=== PATIENT | female | born 1960 | race African-American/Black ===

== ENCOUNTER → 2020-06-08 15:55 | Outpatient (BNVA) | payer MEDICARE, MEDICAID, SELFPAY | PROVIDERS: PCP Nurse Practitioner Adult Health; Visit Provider Student in an Organized Health Care Education/Training Program | DX: Z13.89 Encounter for screening for other disorder (principal) | CPT/HCPCS: Q3014 ==

== ENCOUNTER → 2021-02-02 14:34 | Outpatient (BNVA) | payer MEDICAID, SELFPAY | PROVIDERS: PCP Nurse Practitioner Adult Health; Visit Provider Nurse Practitioner Family | DX: M47.816 Spondylosis without myelopathy or radiculopathy, lumbar region (principal); M79.641 Pain in right hand; M79.642 Pain in left hand | CPT/HCPCS: 99212 ==

== ENCOUNTER 2021-04-10 13:10 | Outpatient (REF) | payer OTHER, SELFPAY ==
--- NOTE | ~2021-04-10 | XR_ITS ---
EXAMINATION: XR HAND, RIGHT XR HAND, LEFT CLINICAL INFORMATION: Pain of the hands COMPARISON: 08/17/2016 TECHNIQUE: Right hand, 3 views Left hand, 3 views FINDINGS: Right hand: Negligible osteophyte formation at first carpometacarpal joint, 2nd MCP joint and some of the DIP joints. The joint spaces are well-preserved in the hand and wrist. No periarticular osteoporosis. No erosions or periostitis. No focal soft tissue swelling. No abnormal soft tissue calcifications. Left hand: Negligible osteophyte formation at the first carpometacarpal joint. No significant degenerative changes in the hand or wrist. No periarticular osteoporosis, erosions or periostitis. No abnormal soft tissue calcification or focal soft tissue swelling. XR/XR hand RT min 3V IMPRESSION: Minimal osteoarthrosis of first carpometacarpal joints and of a few DIP joints of the hands. No significant arthritic changes. There is no evidence of an inflammatory arthropathy.
--- NOTE | ~2021-04-10 | XR_ITS ---
EXAMINATION: XR HAND, RIGHT XR HAND, LEFT CLINICAL INFORMATION: Pain of the hands COMPARISON: 08/17/2016 TECHNIQUE: Right hand, 3 views Left hand, 3 views FINDINGS: Right hand: Negligible osteophyte formation at first carpometacarpal joint, 2nd MCP joint and some of the DIP joints. The joint spaces are well-preserved in the hand and wrist. No periarticular osteoporosis. No erosions or periostitis. No focal soft tissue swelling. No abnormal soft tissue calcifications. Left hand: Negligible osteophyte formation at the first carpometacarpal joint. No significant degenerative changes in the hand or wrist. No periarticular osteoporosis, erosions or periostitis. No abnormal soft tissue calcification or focal soft tissue swelling. XR/XR hand LT min 3V IMPRESSION: Minimal osteoarthrosis of first carpometacarpal joints and of a few DIP joints of the hands. No significant arthritic changes. There is no evidence of an inflammatory arthropathy.
== END 2021-04-10 13:11 | disposition home or self-care (01) ==
LOC: HO.XRAY 13:10
PROVIDERS: PCP Nurse Practitioner Adult Health; Visit Provider Nurse Practitioner Family
DX: M79.641 Pain in right hand (principal); M79.642 Pain in left hand
CPT/HCPCS: 73130

== ENCOUNTER → 2021-10-20 12:17 | Outpatient (BNVA) | payer OTHER, SELFPAY | PROVIDERS: PCP Nurse Practitioner Adult Health; Visit Provider Nurse Practitioner Family | DX: M47.816 Spondylosis without myelopathy or radiculopathy, lumbar region (principal); M19.041 Primary osteoarthritis, right hand; M19.042 Primary osteoarthritis, left hand | CPT/HCPCS: 99212 ==

== ENCOUNTER → 2022-06-05 12:59 | Outpatient (BNVA) | payer OTHER, SELFPAY | PROVIDERS: PCP Nurse Practitioner Adult Health; Visit Provider Nurse Practitioner Family | DX: M19.041 Primary osteoarthritis, right hand (principal); M19.042 Primary osteoarthritis, left hand; M47.816 Spondylosis without myelopathy or radiculopathy, lumbar region; M79.644 Pain in right finger(s); M25.512 Pain in left shoulder | CPT/HCPCS: 99212 ==

== ENCOUNTER 2022-06-08 14:44 | Outpatient (REF) | payer OTHER, SELFPAY ==
--- NOTE | ~2022-06-08 | XR_ITS ---
EXAMINATION: XR HAND, RIGHT CLINICAL INFORMATION: Pain. COMPARISON: None TECHNIQUE: PA, lateral, and oblique views of the right hand. FINDINGS: There is mild loss of first carpometacarpal joint space with periarticular spurring. The MCP, PIP and DIP joint spaces are maintained normal. No visible fracture, dislocation or subluxation seen. XR/XR hand RT min 3V IMPRESSION: Mild degenerative changes first carpometacarpal joint space. Rest of the right hand appears unremarkable.
--- NOTE | ~2022-06-08 | XR_ITS ---
EXAMINATION: XR SHOULDER, LEFT CLINICAL INFORMATION: M25.512 - Pain in left shoulder COMPARISON: None TECHNIQUE: Left shoulder is imaged in 5 views. FINDINGS: No fracture or dislocation or destructive process. The glenohumeral joint is unremarkable. No narrowing or erosive change or chondrocalcinosis. The acromioclavicular alignment is normal. There is mild degenerative change acromioclavicular joint. No visible rotator cuff calcifications. XR/XR shoulder LT min 2V IMPRESSION: 1. Mild degenerative change acromioclavicular joint. 2. No visible rotator cuff calcifications.
[2022-06-08 15:47] LABS: MANUAL DIFF FLAG NO
[2022-06-08 16:37] LABS: Basophils Absolute Auto 0.1 X10*3/uL (0.0-0.2); Basophils Percent Auto 1.2 % (0-2); Eosinophils Absolute Auto 0.2 X10*3/uL (0.0-0.4); Eosinophils Percent Auto 3.7 % (0-4); Hematocrit 38.7 % (37.0-47.0); Hemoglobin 12.7 g/dl (12.0-16.0); Imm Gran Abs Auto 0.01 X10*3/uL (0.00-0.03); Imm Gran Pct Auto 0.2 % (0.0-0.4); Lymphocytes Absolute Auto 1.5 X10*3/uL (1.2-4.9); Lymphocytes Percent Auto 30.7 % (20-40); Mean Corpuscular HGB Conc 32.8 g/dl (31.0-35.0); Mean Corpuscular Hemoglobin 27.2 pg (27.0-33.0); Mean Corpuscular Volume 82.9 fL (80.0-98.0); Mean Platelet Volume 11.1 fL (9.4-12.3); Monocytes Absolute Auto 0.5 X10*3/uL (0.1-1.2); Monocytes Percent Auto 10.3 % (2-11); Neutrophils Absolute Auto 2.6 x10*3/uL (2.0-8.3); Neutrophils Percent Auto 53.9 % (45-73); Platelet Count 303 X10*3/uL (160-400); Red Blood Count 4.67 X10*6/uL (4.20-5.50); Red Cell Distribution Width 13.3 % (11.0-16.0); White Blood Count 4.9 X10*3/uL (4.8-10.8)
[2022-06-08 16:56] LABS: Alanine Aminotransferase 13 U/L (0-31); Albumin Level 4.5 g/dL (3.5-5.0); Alkaline Phosphatase 71 U/L (39-117); Anion Gap 13 (12-20); Aspartate Amino Transferase 16 U/L (5-31); Bilirubin Total 0.4 mg/dL (0.0-1.0); Blood Urea Nitrogen 13 mg/dL (9-16); C Reactive Protein 0.35 mg/dL (< or = 0.50); Calcium 9.9 mg/dL (8.4-10.2); Carbon Dioxide 27 mmol/L (22-29); Chloride 106 mmol/L (96-108); Estimated Glomerular Filt Rate > 60; Glucose Random 81 mg/dL (60-115); Potassium 4.4 mmol/L (3.3-5.1); Rheumatoid Factor < 13.0 IU/mL (<15.0); Sodium 142 mmol/L (135-145); Total Protein 7.6 g/dL (6.5-8.0)
[2022-06-08 17:14] LABS: Erythrocyte Sedimentation Rate 19 MM/HR (0-20)
== END 2022-06-08 14:45 | disposition home or self-care (01) ==
LOC: HO.XRAY 14:44
PROVIDERS: Visit Provider Nurse Practitioner Family
DX: M25.512 Pain in left shoulder (principal); M79.641 Pain in right hand
CPT/HCPCS: 36415; 73030; 73130; 80053; 85025; 85652; 86140; 86431

== ENCOUNTER 2022-07-10 14:24 | Outpatient (REF) | payer OTHER, SELFPAY | END 2022-07-10 14:25 | disposition home or self-care (01) | LOC: HO.MRI 14:24 | PROVIDERS: PCP Nurse Practitioner Adult Health; Visit Provider Nurse Practitioner Family | DX: Z13.89 Encounter for screening for other disorder (principal) ==

== ENCOUNTER 2022-07-27 13:09 | Outpatient (REF) | payer OTHER, SELFPAY ==
[2022-07-27 16:19] LABS: Amphetamine Screen Urine Not Detected (Not Detect); Barbiturates, Urine POSITIVE (Not Detect); Benzodiazepines Screen Urine Not Detected (Not Detect); Cannabinoid Screen Urine Not Detected (Not Detect); Cocaine Screen Urine Not Detected (Not Detect); Fentanyl, urine Not Detected (Not Detect); Opiate Screen Urine Not Detected (Not Detect); Phencyclidine Screen Urine Not Detected (Not Detect)
== END 2022-07-27 13:10 | disposition home or self-care (01) ==
LOC: HO.MRI 13:09
PROVIDERS: PCP Nurse Practitioner Adult Health; Visit Provider Nurse Practitioner Family
DX: M79.601 Pain in right arm (principal); Z79.899 Other long term (current) drug therapy
CPT/HCPCS: 80307

== ENCOUNTER 2023-05-07 10:32 | Outpatient (AMB) | payer OTHER, SELFPAY ==
[2023-05-07 10:34] VITALS: BP 130/82; PULSE 58; O2SAT 100; BMI 42.0
--- NOTE | 2023-05-07 10:34 | A.OFFVIS_ITS ---
Intake Vital Signs 05/07/23 10:34 Height 5 ft 1 in Weight 222 lb 3.615 oz BMI 42.0 BP 130/82 Blood Pressure Location Rt brachial Position Sitting Pulse 58 Pulse Source Pulse Oximeter Pulse Oximetry (%) 100 Oxygen Delivery Method Room Air Intake Visit Reasons: OA Intake Note: Pt last seen by Flaca 06/05/22, presents today for follow up and test results. Weaver Apprentice Required: No Accompanied by: Self / Same As Patient Allergies acetaminophen [Percocet] Allergy (Intermediate, Verified 05/07/23 10:40) vomiting oxycodone [Percocet] Allergy (Intermediate, Verified 05/07/23 10:40) Vomiting Medication List - Last Reconciled 05/07/23 by Kavon Pond MD aspirin 81 mg PO DAILY escitalopram oxalate 10 mg PO DAILY hydrocortisone 2.5% appl topical DAILY PRN lisinopril 20 mg PO DAILY metoprolol succinate ER 50 mg PO DAILY omeprazole 40 mg PO QAM rosuvastatin 40 mg PO DAILY [thumb spica splint, right As directed] tramadol 50 mg PO Q12H HPI HPI Comments History of Present Illness Details 62-year-old female with osteoarthritis returns for follow-up. She states that over the last few weeks she has been having shooting pain in her right hand. She feels the pain is generally worse in the daytime. She cannot think of any alleviating or triggering factors. 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 She takes tramadol Twice daily PFSH Medical History Osteoarthritis of hands, bilateral Hyperlipemia Myocardial infarct, old CAD (coronary artery disease) Lumbar spondylosis Surgical History Hx of section Hx of hysterectomy History of surgery Social History Alcohol intake: never Patient Tobacco Use Status: Former Tobacco user Years Smoked: quit 17 years Review of Systems Musc Reports back pain, Reports arthralgias, Reports stiffness and Reports tingling Neuro Reports tingling and Reports paresthesias Physical Exam Vital Signs: Last Vital Signs Pulse 58 05/07/23 10:34 BP 130/82 05/07/23 10:34 Pulse Ox 100 05/07/23 10:34 Oxygen Delivery Method Room Air 05/07/23 10:34 BMI result Body Mass Index 42.0 Const General: cooperative and healthy appearing Nutritional Appearance: obese morbidly obese Orientation/consciousness: patient oriented x3 Limitations: no limitations HEENT Head: Yes normocephalic and Yes atraumatic Resp Effort & Inspection: normal respiratory effort and able to speak in complete sentences Auscultation: clear to auscultation bilaterally Cardio Rate: regular rate Rhythm: regular rhythm Heart sounds: S1 normal heart sound present Neuro General: patient oriented x3 Extrem Other: Right 1st CMC tenderness Positive Tinel sign on the right with electric shock sensation radiating towards the thumb Negative Tinel sign on the left Normal range of motion of her neck with some pain with left lateral flexion Negative Spurling's test bilaterally Assessment & Plan Assessment & Plan (1) Osteoarthritis of hands, bilateral: Code(s): M19.041 - Primary osteoarthritis, right hand; M19.042 - Primary osteoarthritis, left hand Qualifiers: Osteoarthritis type: primary Qualified Code(s): M19.041 - Primary osteoarthritis, right hand; M19.042 - Primary osteoarthritis, left hand Plan: 62-year-old female with generalized osteoarthritis returns for follow-up. On tramadol Twice daily. Well tolerated. Continue with tramadol. (2) Lumbar spondylosis: Code(s): M47.816 - Spondylosis without myelopathy or radiculopathy, lumbar region (3) Paresthesia of hand, bilateral: Code(s): R20.2 - Paresthesia of skin Plan: Check bilateral upper extremity EMG Plan I spent 24 minutes reviewing patient's chart, evaluating patient, ordering diagnostic workup, counseling patient and documenting in the chart Orders: Orders NE electromyogram (EMG) Today G56.03 - Carpal tunnel syndrome, bilateral upper limbs Coding Level of Care Code Est Pt Level 4 (45660) Diagnoses Primary osteoarthritis of both hands M19.041; M19.042 Osteoarthritis type: primary Lumbar spondylosis M47.816 Paresthesia of hand, bilateral R20.2
== END 2023-05-07 11:03 | disposition home or self-care (01) ==
PROVIDERS: PCP Nurse Practitioner Adult Health; Visit Provider Student in an Organized Health Care Education/Training Program
DX: M19.041 Primary osteoarthritis, right hand (principal); M19.042 Primary osteoarthritis, left hand; M47.816 Spondylosis without myelopathy or radiculopathy, lumbar region; R20.2 Paresthesia of skin
CPT/HCPCS: 99214

== ENCOUNTER → 2023-05-07 10:32 | Outpatient (BNVA) | payer OTHER, SELFPAY | PROVIDERS: PCP Nurse Practitioner Adult Health; Visit Provider Student in an Organized Health Care Education/Training Program | DX: M19.041 Primary osteoarthritis, right hand (principal); M19.042 Primary osteoarthritis, left hand; R20.2 Paresthesia of skin; M47.816 Spondylosis without myelopathy or radiculopathy, lumbar region | CPT/HCPCS: 99212 ==

== ENCOUNTER 2023-06-20 12:53 | Outpatient (REF) | payer OTHER, SELFPAY ==
--- NOTE | 2023-06-20 12:56 | EMG_ITS ---
Chief complaint: Bilateral hand pain and numbness Reason for referral: Evaluate for Carpal Tunnel Syndrome Referred by: Dr. Pond Procedure done: Bilateral upper extremities NCS/EMG Precautions and/or limitations: None The limb temperature was monitored continuously and remained between 32-36 degrees C during the performance of the NCS. Nerve Conduction Studies Anti Sensory Summary Table ?Stim Site NR Onset (ms) Norm Onset (ms) Peak (ms) Norm Peak (ms) O-P Amp (?V) Norm O-P Amp Site1 Site2 Delta-0 (ms) Dist (cm) Azam (m/s) Norm Azam (m/s) Left Median Anti Sensory (2nd Digit) Wrist ? 1.9 3.0 <3.6 12.3 >10 Wrist 2nd Digit 1.9 14.0 74 Right Median Anti Sensory (2nd Digit) Wrist ? 2.6 3.3 <3.6 36.9 >10 Wrist 2nd Digit 2.6 14.0 54 Left Ulnar Anti Sensory (5th Digit) Wrist ? 0.8 3.2 <3.7 18.1 >15.0 Wrist 5th Digit 0.8 14.0 175 Right Ulnar Anti Sensory (5th Digit) Wrist ? 1.3 3.0 <3.7 18.1 >15.0 Wrist 5th Digit 1.3 14.0 108 Motor Summary Table ?Stim Site NR Onset (ms) Norm Onset (ms) O-P Amp (mV) Norm O-P Amp iAmp (mV) Amp (1st) (%) Site1 Site2 Delta-0 (ms) Dist (cm) Azam (m/s) Norm Azam (m/s) Left Median Motor (Abd Poll Brev) Wrist ? 3.1 <3.9 15.9 >4.5 17.4 100.0 Elbow Wrist 3.9 19.5 50 >45 Elbow ? 7.0 14.9 16.2 93.7 Right Median Motor (Abd Poll Brev) Wrist ? 3.4 <3.9 8.8 >4.5 10.5 100.0 Elbow Wrist 3.5 19.5 56 >45 Elbow ? 6.9 17.1 20.5 194.3 Left Ulnar Motor (Abd Dig Minimi) Wrist ? 2.6 <3.0 8.7 >5 11.5 100.0 B Elbow Wrist 2.9 18.5 64 >45 B Elbow ? 5.5 8.4 10.8 96.6 A Elbow B Elbow 1.5 10.0 67 >45 A Elbow ? 7.0 7.7 9.8 88.5 Right Ulnar Motor (Abd Dig Minimi) Wrist ? 2.7 <3.0 9.4 >5 11.6 100.0 B Elbow Wrist 2.8 18.0 64 >45 B Elbow ? 5.5 9.3 11.5 98.9 A Elbow B Elbow 1.5 10.0 67 >45 A Elbow ? 7.0 9.3 11.6 98.9 Comparison Summary Table ?Stim Site NR Peak (ms) Norm Peak (ms) P-T Amp (?V) Site1 Site2 Delta-P (ms) Norm Delta (ms) Left Median/Radial Dig I Comparison (Digit 1 - 10cm) Median ? 2.4 <2.9 23.9 Median Radial 0.1 Radial ? 2.5 <2.8 19.9 Right Median/Radial Dig I Comparison (Digit 1 - 10cm) Median ? 2.6 <2.9 78.0 Median Radial 0.5 Radial ? 2.1 <2.8 49.1 EMG ?Side Muscle Nerve Root Ins Act Fibs Psw Amp Dur Poly Recrt Int Pat Comment Right 1stDorInt Ulnar C8-T1 Nml Nml Nml Nml Nml 0 Nml Complete Right FlexCarRad Median C6-7 Nml Nml Nml Nml Nml 0 Nml Complete Right Biceps Musculocut C5-6 Nml Nml Nml Nml Nml 0 Nml Complete Right Triceps Radial C6-7-8 Nml Nml Nml Nml Nml 0 Nml Complete Right Deltoid Axillary C5-6 Nml Nml Nml Nml Nml 0 Nml Complete Left 1stDorInt Ulnar C8-T1 Nml Nml Nml Nml Nml 0 Nml Complete Left FlexCarRad Median C6-7 Nml Nml Nml Nml Nml 0 Nml Complete Left Biceps Musculocut C5-6 Nml Nml Nml Nml Nml 0 Nml Complete Left Triceps Radial C6-7-8 Nml Nml Nml Nml Nml 0 Nml Complete Left Deltoid Axillary C5-6 Nml Nml Nml Nml Nml 0 Nml Complete FINDINGS: All motor and sensory nerves tested showed normal latencies, amplitudes and conduction velocities. Concentric needle EMG was performed in selected muscles of the bilateral upper extremities. Study did not reveal signs of electric abnormalities as shown in the table below. IMPRESSION: 1. This is a normal study. 2. There is no electrodiagnostic evidence for median neuropathy, ulnar neuropathy, brachial plexopathy, or cervical radiculopathy. Thank you for your kind referral. Aidee Blankenship MD, VENKAT Board Certified, [place] Board [employer] and Rehabilitation (ABPMR) Board Certified, [place] Board of Electrodiagnostic Medicine (ABEM) CODIN 82118 x 2 MTDD
== END 2023-06-20 12:54 | disposition home or self-care (01) ==
LOC: HO.NEURO 12:53
PROVIDERS: PCP Nurse Practitioner Adult Health; Visit Provider Student in an Organized Health Care Education/Training Program
DX: G56.03 Carpal tunnel syndrome, bilateral upper limbs (principal)
CPT/HCPCS: 95886; 95911

== ENCOUNTER → 2023-06-20 12:56 | Outpatient (BNV) | payer OTHER, SELFPAY | PROVIDERS: PCP Nurse Practitioner Adult Health; Visit Provider Physical Medicine & Rehabilitation | DX: M79.641 Pain in right hand (principal); M79.642 Pain in left hand; R20.2 Paresthesia of skin | CPT/HCPCS: 95886; 95911 ==

== ENCOUNTER 2023-07-04 11:53 | Outpatient (AMB) | payer OTHER, SELFPAY ==
--- OUTSIDE RECORDS SUMMARY | 2023-07-04 11:55 | XMS_ITS | Continuity of Care Document ---
Author Name Unknown Organization [facility] Address [address] [place] [address]- Care Team Providers Care Maintenance Mechanic Technician Name Role Phone Thea JEAN, Waleska Primary Care Physician [id number] Date(s): 03/21/22 - 03/28/22 [facility] [address] [place], [place] [id number]- Attending Physician: Aidee Santoyo NP Referring Physician: Waleska Sidhu NP Allergies, Adverse Reactions, Alerts Substance Reaction Severity Status aspirin Upset stomach Active Percocet 5/325 made her sick Active Medications aspirin 81 mg oral delayed release tablet 81 mg, 1, tablet, By Mouth, Daily, # 60 tablet, Refills 6, Tot. Refills 6, Maintenance, 02/05/17 10:26:19, Route to Pharmacy Electronically, [id number], [facility]/pharmacy #[id number] Start Date: 02/05/17 Stop Date: 09/03/17 Status: Ordered Crestor 20 mg oral tablet 1 tablet = 20 mg, By Mouth, Daily, # 30 tablet, 11 Refills, Maintenance, Tablet Start Date: 01/10/11 Stop Date: 01/05/12 Status: Ordered lisinopril 40 mg oral tablet 1 tablet = 40 mg, By Mouth, Daily, # 90 tablet, 0 Refills, Maintenance, 10/31/21 13:09:00 EDT, Tablet, Partial fill upon patient request if the prescription is for a schedule II opioid drug. Start Date: 10/31/21 Status: Ordered metoprolol 50 mg oral tablet, extended release 50 mg, 1, tablet, By Mouth, Daily, # 90 tablet, Refills 3, Tot. Refills 3, Maintenance, 06/07/21 8:26:00 EST, Route to Pharmacy Electronically, [facility]/pharmacy #[id number], Partial fill upon patient request if the prescription is for a schedule II opioid drug.... Start Date: 06/07/21 Status: Ordered omeprazole 20 mg oral enteric coated capsule 1 capsule = 20 mg, By Mouth, 2 times a day, 0 Refills, Maintenance, 07/10/10 16:15:10 EST Start Date: 07/10/10 Status: Ordered Tramadol = 50 mg, 1 tab BID PRN, 0 Refills, 08/23/07 2:18:13 Start Date: 08/23/07 Status: Ordered Problem List Condition Confirmation Course Effective Dates Status Health St atus Informant Hyperlipidemia Confirmed Active Hypertension Confirmed Active Palpitations Confirmed Active Severe obesity Confirmed Active Vital Signs Most recent to oldest [Reference Range]: 1 Height 155 cm (03/21/22 2:56 PM) Weight 97.8 kg (03/21/22 2:56 PM) Oxygen Saturation [94-100 %] 98 % (03/21/22 2:56 PM) Pulse Rate [55-90 bpm] 54 bpm *L* (03/21/22 2:56 PM) Body Mass Index [18.5-24.99 kg/m2] 40.71 kg/m2 *>HHI* (03/21/22 2:56 PM) Blood Pressure [90-138/55-84 mm Hg] 148/ 73mm Hg *H* (03/21/22 2:56 PM) Blood pressure sites Arm, left (03/21/22 2:56 PM) Social History Social History Type Response Smoking Status Former smoker; Tobac co user in household: No entered on: 02/20/17 Sex Patient Care team information Personnel Name: Waleska Sidhu NP Address: Address: [address] [place] [address] [address] [facility], [place] [address]
--- OUTSIDE RECORDS SUMMARY | 2023-07-04 11:55 | XMS_ITS | Continuity of Care Document ---
Author Name Unknown Organization [facility] Address [address] [place] [address]- Care Team Providers Care Nursing Care Partner Name Role Phone Waleska Sidhu NP Primary Care Physician [phone] Encounter [facility] Date(s): 10/31/21 - 11/30/21 [facility] [address] [place] [address]- Attending Physician: Ruthie Pérez Admitting Physician: AdmRuthie gutiérrez Referring Physician: AdmtrRuthie Allergies, Adverse Reactions, Alerts Substance Reaction Severity Status aspirin Upset stomach Active Percocet 5/325 made her sick Active Medications aspirin 81 mg oral delayed release tablet 81 mg, 1, tablet, By Mouth, Daily, # 60 tablet, Refills 6, Tot. Refills 6, Maintenance, 02/05/17 10:26:19, Route to Pharmacy Electronically, [id number], [facility]/pharmacy #[id number] Start Date: 02/05/17 Stop Date: 09/03/17 [...] 06/07/21 8:26:00 EST, Route to Pharmacy Electronically, [facility]/pharmacy #[id number], Partial fill upon patient request if the prescription is for a schedule II opioid drug.... Start Date: 06/07/21 Status: Ordered Norvasc 5 mg oral tablet 5 mg, 1, tablet, By Mouth, Daily, # 30 tablet, Refills 0, Tot. Refills 0, Maintenance, 10/31/21 13:34:00 EDT, Route to Pharmacy Electronically, [facility]/pharmacy #[id number], Partial fill upon patient request if the prescription is for a schedule II opioid drug.... Start Date: 10/31/21 Status: Ordered omeprazole 20 mg oral enteric coated capsule 1 capsule = 20 mg, By Mouth, 2 times a day, 0 Refills, Maintenance, 07/10/10 16:15:10 EST Start Date: 07/10/10 Status: Ordered Tramadol = 50 mg, 1 tab BID PRN, 0 Refills, 08/23/07 2:18:13 Start Date: 08/23/07 Status: Ordered Problem List Condition Effective Dates Status Health Status Inform ant Hyperlipidemia(Confirmed) Active Hypertension(Confirmed) Active Obese class II(Confirmed) Active Palpitations(Confirmed) Active Social History Social History Type Response Smoking Status Former smoker; Tobac co user in household: No entered on: 02/20/17 Sex
--- OUTSIDE RECORDS SUMMARY | 2023-07-04 11:55 | XMS_ITS | Continuity of Care Document ---
Author Name Unknown Organization [facility] Address [address] [place] [address]- Care Team Providers Care Fourdrinier Tender Name Role Phone Waleska Sidhu NP Primary Care Phys[id number] - [facility]06[facility]20 [facility] [address] [place] [address]- [facility] Attending Physician: Mike Betts MD Admitting Physician: Mike Betts MD Allergies, Adverse Reactions, Alerts Substance Reaction Severity Status aspirin Upset stomach Active Percocet 5/325 made her sick Active Medications aspirin 81 mg oral delayed release tablet 81 mg, 1, tablet, By Mouth, Daily, # 60 tablet, Refills 6, Tot. Refills 6, Maintenance, 02/05/17 10:26:19, Route to Pharmacy Electronically, [id number], [facility]/pharmacy #[id number] Start Date: 02/05/17 Stop Date: 09/03/17 Status: Ordered Crestor 20 mg oral tablet 1 tablet = 20 mg, By Mouth, Daily, # 30 tablet, 11 Refills, Maintenance, Tablet Start Date: 01/10/11 Stop Date: 01/05/12 Status: Ordered lisinopril 10 mg oral tablet 10 mg, 1, tablet, By Mouth, Daily, # 90 tablet, Refills 3, Tot. Refills 3, Maintenance, 09/17/16 13:56:55, Route to Pharmacy Electronically, [id number], [facility], this is a dose increase per provider Start Date: 09/17/16 Stop Date: 09/12/17 Status: Ordered metoprolol 50 mg oral tablet, extended release 1 tablet = 50 mg, By Mouth, Daily, 0 Refills, Maintenance Start Date: 08/18/12 Status: Ordered omeprazole 20 mg oral enteric coated capsule 1 capsule = 20 mg, By Mouth, Daily, 0 Refills, Maintenance Start Date: 07/10/10 Status: Ordered Tramadol = 50 mg, 1 tab BID PRN, 0 Refills, 08/23/07 2:18:13 Start Date: 08/23/07 Status: Ordered Problem List Condition Effective Dates Status Health Status Inform ant Hyperlipidemia(Confirmed) Active Hypertension(Confirmed) Active Palpitations(Confirmed) Active Social History Social History Type Response Smoking Status Former smoker; Tobac co user in household: No entered on: 02/20/17 Sex
--- OUTSIDE RECORDS SUMMARY | 2023-07-04 11:55 | XMS_ITS | Continuity of Care Document ---
Author Name Unknown Organization [facility] Address [address] [place] [address]- Care Team Providers Care Wallcovering Texturer Name Role Phone Thea JEAN, Waleska Primary Care Physician En[facility] Date(s): 12/07/19 - 01/06/20 [facility] [address] [place] [address]- [facility] Allergies, Adverse Reactions, Alerts Substance Reaction Severity Status aspirin Upset stomach Active Percocet 5/325 made her sick Active Medications aspirin 81 mg oral delayed release tablet 81 mg, 1, tablet, By Mouth, Daily, # 60 tablet, Refills 6, Tot. Refills 6, Maintenance, 02/05/17 10:26:19, Route to Pharmacy Electronically, [id number], [facility]/pharmacy #[id number] Start Date: 02/05/17 Stop Date: [...] Maintenance, 09/17/16 13:56:55, Route to Pharmacy Electronically, [id number], [facility], this is a dose [...]
--- OUTSIDE RECORDS SUMMARY | 2023-07-04 11:55 | XMS_ITS | Continuity of Care Document ---
Author Name Unknown Organization [facility] Address [address] [place] [address]- Care Team Providers Care Slitter Scorer Name Role Phone Thea JEAN, Waleska Primary Care Phys[id number] 11/19/19 - 01/06/20 [facility] [address] [place] [address]- [facility] Attending Physician: Mike Betts MD Admitting Physician: Mike Betts MD Referring Physician: Waleska Sidhu NP Allergies, Adverse Reactions, Alerts Substance Reaction Severity Status aspirin Upset stomach Active Percocet 5/325 made her sick Active Medications aspirin 81 mg oral delayed release tablet 81 mg, 1, tablet, By Mouth, Daily, # 60 tablet, Refills 6, Tot. Refills 6, Maintenance, 02/05/17 10:26:19, Route to Pharmacy Electronically, [id number], [facility]/pharmacy #[id number] Start Date: 02/05/17 Stop Date: 09/03/17 [...] Maintenance, 09/17/16 13:56:55, Route to Pharmacy Electronically, [id number], [facility], this is a dose increase [...] ant Hyperlipidemia(Confirmed) Active Hypertension(Confirmed) Active Palpitations(Confirmed) Active Vital Signs Most recent to oldest [Reference Range]: 1 Height 155.00 cm (12/03/19 4:06 PM) Social History Social History Type Response Smoking Status Former smoker; Tobac co user in household: No entered on: 02/20/17 Sex
--- OUTSIDE RECORDS SUMMARY | 2023-07-04 11:55 | XMS_ITS | Continuity of Care Document ---
Author Name Unknown Organization [facility] Address [address] [place] [address]- Care Team Providers Care Tunnel Heading Inspector Name Role Phone Waleska Sidhu NP Primary Care Physician Encounter [facility] Date(s): 01/11/20 - 02/10/20 [facility] [address] [place] [address]- [facility] Attending Physician: Ruthie Pérez Admitting Physician: Ruthie Pérez Referring Physician: Ruthie Pérez Allergies, Adverse Reactions, Alerts Substance Reaction Severity Status aspirin Upset stomach Active Percocet 5/325 made her sick Active Medications aspirin 81 mg oral delayed release tablet 81 mg, 1, tablet, By Mouth, Daily, # 60 tablet, Refills 6, Tot. Refills 6, Maintenance, 02/05/17 10:26:19, Route to Pharmacy Electronically, [id number], [facility]/pharmacy #[id number] Start Date: 02/05/17 Stop Date: [...] Maintenance, 09/17/16 13:56:55, Route to Pharmacy Electronically, [id number], [facility], this is a dose [...]
--- OUTSIDE RECORDS SUMMARY | 2023-07-04 11:55 | XMS_ITS | Continuity of Care Document ---
Author Name Unknown Organization [facility] Address [address] [place] [address]- Care Team Providers Care Instrument Lens Inspector Name Role Phone Thea JEAN, Waleska Primary Care Physician [phone] Encounter [facility] Date(s): 02/26/22 - 03/28/22 [facility] [address] [place] [address]- [place] Allergies, Adverse Reactions, Alerts Substance Reaction Severity Status aspirin Upset stomach Active Percocet 5/325 made her sick Active Medications aspirin 81 mg oral delayed release tablet 81 mg, 1, tablet, By Mouth, Daily, # 60 tablet, Refills 6, Tot. Refills 6, Maintenance, 02/05/17 10:26:19, Route to Pharmacy Electronically, [id number], [facility]/pharmacy #[id number] Start Date: 02/05/17 Stop Date: 09/03/17 Status: [...] 06/07/21 8:26:00 EST, Route to Pharmacy Electronically, [facility]/pharmacy #[id number], Partial fill upon patient request if the [...] Palpitations Confirmed Active Severe obesity Confirmed Active Social History Social History Type Response Smoking Status Former smoker; Tobac co user in household: No entered on: 02/20/17 Sex Patient Care team information Personnel Name: Waleska Sidhu NP Address: Address: [address] [place] [address] [place] [address], [place] [address]
--- OUTSIDE RECORDS SUMMARY | 2023-07-04 11:55 | XMS_ITS | Continuity of Care Document ---
Author Name Unknown Organization [facility] Address [address] [place] [id number]- Care Team Providers Care Adobe Maker Name Role Phone Thea JEAN, Waleska Primary Care Physician [phone] [place] [facility] [place] - 11/23/21 [facility] [address] [place] [address]- [place] Allergies, Adverse Reactions, Alerts Substance Reaction Severity Status aspirin Upset stomach Active Percocet 5/325 made her sick Active Medications aspirin 81 mg oral delayed release tablet 81 mg, 1, tablet, By Mouth, Daily, # 60 tablet, Refills 6, Tot. Refills 6, Maintenance, 02/05/17 10:26:19, Route to Pharmacy Electronically, [id number], [facility]/pharmacy #[id number] Start Date: 02/05/17 Stop Date: 09/03/17 Status: [...] 06/07/21 8:26:00 EST, Route to Pharmacy Electronically, [facility]/pharmacy #[id number], Partial fill upon patient request if the prescription is for a schedule II opioid drug.... Start Date: 06/07/21 Status: Ordered Norvasc 5 mg oral tablet 5 mg, 1, tablet, By Mouth, Daily, # 30 tablet, Refills 0, Tot. Refills 0, Maintenance, 10/31/21 13:34:00 EDT, Route to Pharmacy Electronically, [facility]/pharmacy #[id number], Partial fill upon patient request if [...]
--- OUTSIDE RECORDS SUMMARY | 2023-07-04 11:55 | XMS_ITS | Continuity of Care Document ---
Author Name Unknown Organization [facility] Address [address] [place] [address]- Care Team Providers Care Utility Tender Carding Name Role Phone Waleska Sidhu NP Primary Care Physician Encounter [facility] [place] Date(s): 03/21/22 - 04/20/22 [facility] [address] [place] [id number]- Attending Physician: Ruthie Pérez Admitting Physician: AdmRuthie gutiérrez Referring Physician: AdmtrRuthie Allergies, Adverse Reactions, Alerts Substance Reaction Severity Status aspirin Upset stomach Active Percocet 5/325 made her sick Active Medications aspirin 81 mg oral delayed release tablet 81 mg, 1, tablet, By Mouth, Daily, # 60 tablet, Refills 6, Tot. Refills 6, Maintenance, 02/05/17 10:26:19, Route to Pharmacy Electronically, [id number], [facility]/pharmacy #[id number] Start Date: 02/05/17 Stop Date: 09/03/17 [...] 06/07/21 8:26:00 EST, Route to Pharmacy Electronically, [facility]/pharmacy #[id number], Partial fill upon patient request if the [...] on: 02/20/17 Sex Patient Care team information Care Team Personnel Name: Waleska Sidhu NP Position: [facility] Office Staff Member Role: PCP Address: Address: [address] [place] [address] [address] [place] [address]- Care Team Related Persons Name: DAVID CONTRERAS Address: [address] [place] [address]
--- OUTSIDE RECORDS SUMMARY | 2023-07-04 11:55 | XMS_ITS | Patient Health Record ---
Author Name Unknown Organization [facility] Address [address] [place] [address] Care Team Providers Care Planning Lead Name Role Phone CINDY WHITE Primary Care Provider [phone] CINDY WHITE Unavailable [phone] IRINA GAVIN Unavailable [phone] TEREZA FERRARI Unavailable [phone] Allergies Allergen (clinical drug ingredient) Drug/Non Drug Allergy documented on EMR Reaction Allergy Type Onset Date Status aspirin Aspirin TABS (uncoded) vomiting Allergy Active acetaminophen / oxycodone Percocet TABS (uncoded) Unknown Allergy Active Results Component Value Reference Range Notes CBC WITH AUTO DIFF Reviewed date:07/24/2022 12:22:04 PM Interpretation: Performing Lab: Notes/Report: WBC 5.5 4.8-10.8 x10-3/uL RBC 4.5 3.8-4.8 x10-6/uL HEMOGLOBIN 12.5 11.5-16.0 g/dL HEMATOCRIT 40.0 35-47 % MCV 88.1 79-98 fL MCH 27.5 27-32 pg MCHC 31.3 32-37 g/dL RDW 13.3 11-15 % PLT COUNT 274 130-400 x10-3/uL MEAN PLATELET VOLUME 11.3 7-11 fL NRBC % AUTO 0.0 <1 % NEUT % 55.9 LYMPH % 29.5 MONO % 10.1 EOS % 3.8 BASO % 0.5 IMMATURE GRANULOCYTES % 0.2 NRBC # AUTO 0.00 <0.1 x10-3/uL ABSOLUTE NEUT 3.08 1.5-7.0 x10-3/uL LYMPH # 1.63 1-5.0 x10-3/uL MONO # 0.56 0.2-1.0 x10-3/uL EOS # 0.21 0-0.5 x10-3/uL BASO # 0.03 0-0.2 x10-3/uL IMMATURE GRANULOCYTES # 0.01 0-0.03 x10-3/uL CBC WITH AUTO DIFF Reviewed date:01/17/2023 06:07:22 PM Interpretation: Performing Lab: Notes/Report: WBC 4.5 4.8-10.8 x10-3/uL RBC 4.5 3.8-4.8 x10-6/uL HEMOGLOBIN 12.2 11.5-16.0 g/dL HEMATOCRIT 37.9 35-47 % MCV 83.8 79-98 fL MCH 27.0 27-32 pg MCHC 32.2 32-37 g/dL RDW 13.4 11-15 % PLT COUNT 330 130-400 x10-3/uL MEAN PLATELET VOLUME 10.1 7-11 fL NRBC % AUTO 0.0 <1 % NEUT % 50.3 LYMPH % 33.9 MONO % 12.5 EOS % 2.0 BASO % 1.1 IMMATURE GRANULOCYTES % 0.2 NRBC # AUTO 0.00 <0.1 x10-3/uL ABSOLUTE NEUT 2.25 1.5-7.0 x10-3/uL LYMPH # 1.52 1-5.0 x10-3/uL MONO # 0.56 0.2-1.0 x10-3/uL EOS # 0.09 0-0.5 x10-3/uL BASO # 0.05 0-0.2 x10-3/uL IMMATURE GRANULOCYTES # 0.01 0-0.03 x10-3/uL COMPREHENSIVE METABOLIC PANE L Reviewed date:07/24/2022 12:21:30 PM Interpretation: Performing Lab: Notes/Report: GLUCOSE 78 70-100 mg/dL Reference range applicable to fasting specimens only BUN 14 5-25 mg/dL CREAT 0.78 0.5-1.1 mg/dL GLOMERULAR FILTRATION RATE 87 >60 This eGFR result was calculated using the CKD-EPI 2020 Creatinine Equation SODIUM 141 135-145 mEq/L POTASSIUM 3.9 3.5-5.5 mmol/L CHLORIDE 108 96-110 mmol/L CO2 28 21-32 mmol/L ANION GAP 5 3-11 CALCIUM 9.5 8.5-10.5 mg/dL TOTAL PROTEIN 7.6 6.0-8.0 G/dL ALBUMIN 3.7 3.2-5.0 G/dL BILI,TOTAL 0.3 0.0-1.4 mg/dL SGOT 14 10-42 U/L SGPT 19 10-60 U/L ALK PHOS 79 42-121 U/L GLYCOHEMOGLOBIN PROFILE Reviewed date:07/24/2022 12:22:38 PM Interpretation: Performing Lab: Notes/Report: GLYCATED HEMOGLOBIN A1C 6.2 <6.5 % ESTIMATED AVERAGE GLUCOSE 131 LIPID PROFILE Reviewed date:07/24/2022 12:21:50 PM Interpretation: Performing Lab: Notes/Report: CHOLESTEROL 174 0-200 mg/dL TRIGLYCERIDES 88 0-150 mg/dL HDL CHOLESTEROL 61 >40 mg/dL LDL CALCULATED 96 0-100 mg/dL TC-HDLC RATIO 2.9 0-4.4 mg/dL MICROALB/CREAT RATIO, RANDOM Reviewed date:07/24/2022 12:22:22 PM Interpretation: Performing Lab: Notes/Report: MICROALBUMIN, RANDOM 32.7 0.0-29.0 mg/L MICROALB/CRE RATIO RANDOM 13.7 0.0-30.0 mg/G CREATININE, RANDOM URINE 237 CT Brain WO Reviewed date:08/07/2022 02:43:17 PM Interpretation: Performing Lab: Notes/Report: Original Ordering Provider: CINDY WHITE NP [facility] US Duplex Venous Study RT Reviewed date:09/03/2022 01:26:58 PM Interpretation: Performing Lab: Notes/Report: CC PRIMARY CARE Reviewed date:01/17/2023 12:06:41 PM Interpretation: Performing Lab: Notes/Report: URIC ACID Reviewed date:08/24/2022 01:15:58 PM Interpretation: Performing Lab: Notes/Report: URIC ACID 3.3 3.1-7.8 mg/dL CBC WITH AUTO DIFF Reviewed date:08/21/2022 07:28:11 PM Interpretation: Performing Lab: Notes/Report: WBC 5.7 4.8-10.8 x10-3/uL RBC 4.7 3.8-4.8 x10-6/uL HEMOGLOBIN 12.8 11.5-16.0 g/dL HEMATOCRIT 39.9 35-47 % MCV 85.4 79-98 fL MCH 27.4 27-32 pg MCHC 32.1 32-37 g/dL RDW 13.7 11-15 % PLT COUNT 342 130-400 x10-3/uL MEAN PLATELET VOLUME 11.0 7-11 fL NRBC % AUTO 0.0 <1 % NEUT % 58.1 LYMPH % 26.3 MONO % 11.2 EOS % 3.3 BASO % 0.9 IMMATURE GRANULOCYTES % 0.2 NRBC # AUTO 0.00 <0.1 x10-3/uL ABSOLUTE NEUT 3.31 1.5-7.0 x10-3/uL LYMPH # 1.50 1-5.0 x10-3/uL MONO # 0.64 0.2-1.0 x10-3/uL EOS # 0.19 0-0.5 x10-3/uL BASO # 0.05 0-0.2 x10-3/uL IMMATURE GRANULOCYTES # 0.01 0-0.03 x10-3/uL Electrocardiogram (EKG) Reviewed date:08/07/2022 11:30:24 AM Interpretation: Performing Lab: Notes/Report: Colonoscopy Reviewed date:08/03/2022 04:52:57 PM Interpretation:Dr Nevarez,Rpt 10yrs Performing Lab: Notes/Report: Dr Nevarez,Rpt 10yrs CR Foot RT Min 3 Views Reviewed date:08/24/2022 01:13:23 PM Interpretation:Negative Performing Lab: Notes/Report: Original Ordering Provider: CINDY WHITE NP [facility] Reason For Referral Reason snorer, poor sleep, am fatigue, obese, CAD. please perform sleep study Diagnosis 1 Sleep disturbance (G 47.9) Diagnosis 2 Morbid obesity due t o excess calories (E66.01) Diagnosis 3 Coronary artery dise ase involving chitina heart without angina pectoris, unspecified vessel or lesion type (I25.10) Referral Organization [facility] Referring Provider First Name CINDY Referring Provider Last Name CINDY Referring Provider Speciality Family Pra ctice Referred Provider Specialty Sleep Medici ne General Notes Dionne Teague 8:24:06 AM > Sleep,Medicine Services Referral Priority Routine Reason 4 week hx of hamstri ng pain and pain in ankle and foot. began after bending down and over something. not associated with back pain. has not improved with heat, home stretches. eval and treat. Diagnosis 1 Right leg pain (M79. 604) Referral Organization [facility] Referring Provider First Name CINDY Referring Provider Last Name POOJAROSELYN Referring Provider Speciality Family Pra ctice Referred Provider Specialty Physical The rapist General Notes Dionne Teague 05/2023 1:49:30 PM > [facility],([place]) Referral Priority Routine Medications Medication SIG (Take, Route, Frequency, Duration) Notes Start Date End Date Status Zolpidem Tartrate 10 MG 1 tablet at bedtime as needed Orally Once a day for 30 days PRN 09/25/2021 Not-Taking One Touch Delica Lancets - as directed In Vitro to test BS QD or as directed by . DX: E11.9 for 90 days 03/02/2020 Active Nitroglycerin 0.4 MG 1 tablet Sublingual if needed for chest pain. for 30 Not-Taking Metoprolol Succinate ER 50 MG 1 tablet Orally Once a day for 90 Active DEPO-Medrol 40 MG/ML Injection for 0 as directed 04/13/2014 Not-Taking Lisinopril 20 MG TAKE 1 TABLET BY MOUTH EVERY DAY for 90 days Active Polyethylene Glycol 3350 Oral for 0 Empty entire bottle into 64 oz Gatorade 2 or if diabetic in 64 oz Crystal Light. Starting at 4pm drink 8oz every 20mins drink entire 64oz. 03/07/2015 Not-Taking Hydrocortisone 2.5 % 1 application Externally Once a day for 30 days PRN Active Aspirin Low Dose 81 MG TAKE 1 TABLET BY MOUTH EVERY DAY for 90 Active traMADol HCl 50 MG one tablet prn Oral q8h for 30 TAKE 1 TABLET BY MOUTH 4 TIMES A DAY NEEDED FOR PAIN 02/03/2014 Active OneTouch Verio w/Device as directed In Vitro To Test BS QD or as directed by DX: E11.9 for 365 days 03/02/2020 Active Cyclobenzaprine HCl 10 MG TAKE 1 TABLET BY MOUTH EVERY DAY FOR 30 DAYS for 30 Not-Taking OneTouch Verio - as directed In Vitro to test BS QD or as directed by DX: E11.9 for 90 days 03/02/2020 Active metFORMIN HCl ER 500 MG 1 tablet with evening meal Orally Once a day for 90 days Active Escitalopram Oxalate 10 MG TAKE 1 TABLET BY MOUTH EVERY DAY for 90 Not-Taking Prednisone [address] Dave Not- Taking Crestor 40 MG 1 tablet Orally Once a day for 90 days Active Keisha Microlet Lancets Does Not Apply for 30 TEST WITH BID 12/06/2007 Not-Taking FreeStyle Test In Vitro for 0 USE DIRECTED THREE TIMES DAILY 08/08/2010 Not-Taking Lansoprazole 30 MG 1 capsule before a meal Orally Once a day for 90 days Active Omeprazole 40 MG TAKE 1 CAPSULE BY MOUTH EVERY DAY 30 MINUTES BEFORE MORNING MEAL FOR 30 DAYS Orally Once a day for 90 days Not-Taking Fluticasone Propionate 50 MCG/ACT Nasal Daily for 0 USE 1 TO 2 SPRAYS IN EACH NOSTRIL ONCE DAILY. 05/25/2014 Not-Taking Social History Tobacco Use: Social History Observation Description Date Details (start date - stop date) Never Smoker NA - NA Tobacco Use/Smoking Question Answer Notes Are you a nonsmoker Additional Findings: Tobacco Non-User Current no n-smoker Alcohol Screen (Audit-C) Question Answer Notes Did you have a drink containing alcohol in the p ast year? No Points 0 Interpretation Negative Tobacco use other than smoking: Question Answer Notes Are you an other tobacco user? No Problems Problem Type SNOMED Code ICD Code Onset Dates Problem Status W/U Status Risk Notes Problem 679221292 Chronic tension-type headache, not intractable (G44.229) Active confirmed Problem Gastro-esophageal reflux disease without esophagitis (797701051) Gastro-esophagea l reflux disease without esophagitis (K21.9) Active confirmed Problem 156061701 Fibromyalgia (M79.7) Active confirmed Dr Dave Problem Mixed anxiety and depressive disorder (983649662) Depression with anxiety (F41.8) Active confirmed Problem 81293928 Sleep disturbance (G47.9) Active confirmed light out examiner stressors in life and now sister on assisted life support and nephew murdered. will give zolpidem. discussed intermittent use, not nightly. needs to keep in secure place and never to use with etoh. Problem 099962764 Morbid obesity due to excess calories (E66.01) Active confirmed Problem 457317077 Chronic constipation (K59.09) Active confirmed Problem 271991786 Chronic depression (F32.9) Active confirmed has significant stressors within family. Now also helping to care for mom. PHQ-9 score 8. will cont meds. Problem 38139763 Essential hypertension (I10) Active confirmed discussed getting bp checked at pharmacy or by borrowing a family member's monitor for home checks. Today , bp elevated. increase lsinopril to 20 mg reeval in 4 weeks. discussed stroke prevention. No med change. Problem 702902518 Type 2 diabetes mellitus without complication, without long-term current use of insulin (E11.9) Active confirmed not testing blood sugars at home- afraid to stick self..Is trying to avoid sweets. . using metformin- not able to increase dose due to diarrhea. eye exam due- urged to call.Has had covid vaccines cont sumit and statin Lab today Problem Annual health maintenance examination (18924536) Annual physical exam (Z00.00) Active confirmed Problem 19517449 Diverticulosis of intestine without bleeding, unspecified intestinal tract location (K57.90) Active confirmed Dr Griffin, colonoscopy Problem 625170915 Primary osteoarthritis involving multiple joints (M15.0) Active confirmed Problem 397324315 Pure hypercholesterol emia (E78.00) Active confirmed lipid panel this week- order form given. cont statin. Encouraged lower fat eating. Problem 87633069 Coronary artery disease involving chitina heart without angina pectoris, unspecified vessel or lesion type (I25.10) Active confirmed anterior wall ND Problem 781571454 Microscopic hematuria (R31.29) Active confirmed neg cytology, US and cystocopy 2014, Dr Law Problem 059921535 Ischemic heart disease (I25.9) 1904 Active confirmed hx ND 2006, bare metal stent LAD DR Tolbert [facility] Seen yearly. Denies sx. BP and lipids at goal. Problem Hypercholesterolemi a (24965625) Hypercholesterol emia (E78.00) Active confirmed Vital Signs Heart Rate 67 /min 04/08/2023 Temperature 98.9 degrees Fahrenheit 04/08/2023 Oximetry 97 % 04/08/2023 Blood pressure diastolic 82 mm Hg 04/08/2023 Height 61.0235 in 04/08/2023 Blood pressure systolic 128 mm Hg 04/08/2023 Weight 224 lbs 04/08/2023 BMI 42.29 kg/m2 04/08/2023 Encounters Encounter Location Date Provider Diagnosis [facility] [address] [place] [address] 07/24/2022 CINDY WHITE Ischemic heart disease I25.9 ; Type 2 diabetes mellitus without complication, without long-term current use of insulin E11.9 ; Chronic tension-type headache, not intractable G44.229 ; Sleep disturbance G47.9 and Depression with anxiety F41.8 [facility] [address] [place] [address] 08/07/2022 CINDY WHITE Palpitations R00.2 ; Chest pain R07.9 and Chronic tension-type headache, not intractable G44.229 [facility] [address] [place] [address] 08/21/2022 CINDY WHITE Right leg pain M79.604 ; Traumatic ecchymosis of right foot, initial encounter S90.31XA ; Effusion of metatarsophalangeal (MTP) joint of great toe M25.476 and Gastro-esophageal reflux disease without esophagitis K21.9 [facility] [address] [place] [address] 08/28/2022 CINDY WHITE Right leg pain M79.604 ; Effusion of metatarsophalangeal (MTP) joint of great toe M25.476 and Gastro-esophageal reflux disease without esophagitis K21.9 [facility] [address] [place] [address] 04/08/2023 CINDY WHITE Gastro-esophageal reflux disease without esophagitis K21.9 ; Essential hypertension I10 ; Coronary artery disease involving chitina heart without angina pectoris, unspecified vessel or lesion type I25.10 ; Type 2 diabetes mellitus without complication, without long-term current use of insulin E11.9 ; Hypercholesterolemia E78.00 and Eczema, unspecified type L30.9 [facility] [address] [place] [address] 07/27/2022 CINDY WHITE [facility] [address] [place] [address] 08/01/2022 CINDY WHITE Eczema, unspecified type L30.9 [facility] [address] [place] [address] 08/07/2022 CINDY WHITE [facility] [address] [place] [address] 08/28/2022 CINDY WHITE [facility] [address] [place] [address] 09/10/2022 CINDY WHITE Right leg pain M79.604 [facility] [address] [place] [address] 09/11/2022 CINDY WHITE Gastro-esophageal reflux disease without esophagitis K21.9 [facility] [address] [place] [address] 12/12/2022 CINDY WHITE Eczema, unspecified type L30.9 Assessments Encounter Date Diagnosis (ICD Code) Assessment Notes Treatment Notes Treatment Clinical Notes 07/24/2022 Type 2 diabetes lele itus without complication, without long-term current use of insulin (ICD-10 - E11.9) not testing blood sugars at home- afraid to stick self.. AiC at goal cont metformin , statin and sumit. urged eye exam. 07/24/2022 Ischemic heart disea se (ICD-10 - I25.9) hx ND 2006, bare metal stent LAD DR Didi Merlos Seen yearly. Denies sx. BP and lipids at goal. had sx last week that could indicate angina. disucssed with pt. can't get to this office until next week due to other commitments. OV 7 days with ekg. instruceted to go to Ed if she has return of palp and or SOB. cont cardiac meds at current dose. 08/01/2022 Eczema, unspecified type (ICD-10 - L30.9) begin hydrocorstison e. stop using etoh swabs. refer to derm. 08/21/2022 Right leg pain (ICD- 10 - M79.604) given hx pain is most likely muscular skeletal but need to r/o DVT. image cont asa 81 mg daily 08/21/2022 Traumatic ecchymosis of right foot, initial encounter (ICD-10 - S90.31XA) has ecchymosis and underly ing tenderness. inverting foot when walking due to pain. will image to r/o occult fracture. Apply warm heat packs/heating pad 08/28/2022 Right leg pain (ICD- 10 - M79.604) improving awaiting imaging appt to r/o DVT. image cont asa 81 mg daily 09/10/2022 Right leg pain (ICD- 10 - M79.604) 09/11/2022 Gastro-esophageal re flux disease without esophagitis (ICD-10 - K21.9) 12/12/2022 Eczema, unspecified type (ICD-10 - L30.9) 04/08/2023 Gastro-esophageal re flux disease without esophagitis (ICD-10 - K21.9) omeprazole has not been effective. has had GI eval. sx constant and not associated with activity, SOB to indicate cardiac origin. will try Prevacid, discussed use of GoodRx if needed 04/08/2023 Essential hypertensi on (ICD-10 - I10) discussed getting bp checked at pharmacy or by borrowing a family member's monitor for home checks. Today , bp elevated. increase lsinopril to 20 mg reeval in 4 weeks. discussed stroke prevention. No med change. bp near goal with current med. out of meds for about 3 mo. lightheadedness improved when back on betablocker for past few days. resume lisinopril. stressed need to find new pcp and make appoi ntment promptly for followup. 08/07/2022 Palpitations (ICD-10 - R00.2) EKG NSR, discussed limiting caffeine as sx occur after consuming. GERD sx seem to be controlled with PPI; has had negative EGD, has GI follow up. 08/07/2022 Chest pain (ICD-10 - R07.9) no further chest pressure. has resumed metoprolol EKG today NSR rate 54. urged to go to ED if has sx again. 08/07/2022 Chronic tension-type headache, not intractable (ICD-10 - G44.229) remote eval by neuro and not migraines. Fioricet very effective for sx. discussed not made for daily use. Will rx #10 per month max. cont life style modifications, heat, massage, posture. 04/08/2023 Coronary artery dise ase involving chitina heart without angina pectoris, unspecified vessel or lesion type (ICD-10 - I25.10) anterior wall ND follows with cardiology. on betablocker and statin. denies CP, decrese exercise tolerance. no med changes due for labs today 08/28/2022 Effusion of metatarsophalangeal (MTP) joint of great toe (ICD-10 - M25.476) resolved use comfortable nonheeled footwear 08/21/2022 Effusion of metatarsophalangeal (MTP) joint of great toe (ICD-10 - M25.476) may be associated with ecchymosis and tenderness of mid foot. will check for gout as MTP is acutely tender. 07/24/2022 Chronic tension-type headache, not intractable (ICD-10 - G44.229) peristent headaches. instructed to use heat to neck and shoulders. will give short course of fiorcet. discussed habituation and avoidance of assisted use. has not had imaging so will request CT. reeval one week or after CT 08/21/2022 Gastro-esophageal re flux disease without esophagitis (ICD-10 - K21.9) has had nausea since change of parasitology teacher for PPI. will request refill with different parasitology teacher of med 08/28/2022 Gastro-esophageal re flux disease without esophagitis (ICD-10 - K21.9) 07/24/2022 Sleep disturbance (I CD-10 - G47.9) light out examiner stressors in life and now sister on assisted life support and nephew murdered. does not sleep well trazedone in past gave her hangover. had sleep study over 10 years ago and does not recall results. not found in transfered records. as heavy snorer and overweight, as well has cardiac disease, will request sleep study. 04/08/2023 Type 2 diabetes lele itus without complication, without long-term current use of insulin (ICD-10 - E11.9) not testing blood sugars at home- afraid to stick self..Is trying to avoid sweets. . using metformin- not able to increase dose due to diarrhea. eye exam due- urged to call.Has had covid vaccines cont sumit and statin Lab today has been out of meds for at least 3 mo. hyperglycemia may be contributing to today's sx of light headedness. refill metformin, SUMIT and statin. Labs today and adjust meds when results known. 04/08/2023 Hypercholesterolemia (ICD-10 - E78.00) 07/24/2022 Depression with anxi ety (ICD-10 - F41.8) not taking SSRI Feels she is doing okay without it. does not want to start escitalopram as she is having headaches. 04/08/2023 Eczema, unspecified type (ICD-10 - L30.9) Plan Of Treatment Pending Test Test Name Order Date Microalb/Creat Ratio, Rand Ur 7 MAMMOGRAM, SCREENING 08/24/2016 MAMMOGRAM, SCREENING 09/25/2021 CBC WITH AUTO DIFF 05/08/2022 COMPREHENSIVE METABOLIC PANEL 05/08/2022 COMPREHENSIVE METABOLIC PANEL 08/24/2016 GLYCOHEMOGLOBIN PROFILE 05/08/2022 LIPID PROFILE 05/08/2022 LIPID PROFILE 08/24/2016 URINALYSIS 08/24/2016 MICROALB/CREAT RATIO, RANDOM 05/08/2022 HgA1C 08/24/2016 xr right foot 08/21/2022 CT Brain WO 07/24/2022 Anand Screening Digital 09/18/2018 TSH 12/06/2017 Microalb/Creat Ratio, Rand Ur 8 Lipid Panel 12/06/2017 Comp. Metabolic Panel (14) 12/06/2017 HgA1C 12/06/2017 Microalb/Creat Ratio, Rand Ur 0 Lipid Panel 04/18/2020 Comp. Metabolic Panel (14) 02/26/2020 HgA1C 02/26/2020 Microalb/Creat Ratio, Rand Ur 0 Comp. Metabolic Panel (14) 04/18/2020 MAGNESIUM 02/26/2020 HgA1C 04/18/2020 Microalb/Creat Ratio, Rand Ur 2 HgA1C 02/16/2022 COMPREHENSIVE METABOLIC PANEL 02/16/2022 LIPID PROFILE 02/16/2022 MICROALB/CREAT RATIO, RANDOM 02/16/2022 Future Test Test Name Order Date Lipid Panel 12/31/2016 MICROALB/CREAT RATIO, RANDOM 12/31/2016 HgA1C 12/31/2016 Vitamin B12 01/15/2020 COMPREHENSIVE METABOLIC PANEL 10/18/2020 LIPID PROFILE 10/18/2020 GLYCOHEMOGLOBIN PROFILE 09/25/2021 VITAMIN B12 04/08/2023 COMPREHENSIVE METABOLIC PANEL 04/08/2023 GLYCOHEMOGLOBIN PROFILE 04/08/2023 LIPID PROFILE 04/08/2023 TSH 04/08/2023 MICROALB/CREAT RATIO, RANDOM 04/08/2023 Insurance Providers Payer Name Payer Address Payer Phone Subscriber Number Group Number Insured Name Patient Relationship to Insured Coverage Start Date Coverage End Date [facility] Plan, In [address] [address] [place] [address] [phone] [id number] Ariana Ahn Self - patient is the insured [employer] [place] [address] [place] [address] [phone] [id number] Ariana Ahn Self - patient is the insured Medical (General) History Medical History History ICD Code , Abdominal pain, LLQ (left lower quadrant) , Abnormal CT scan , Acute maxillary sinusitis , Anal Fissure , Anal Pain , Arteriosclerotic coronary artery disease , External Hemorrhoids , History of acute sinusitis , History of dizziness , History of headache , History of urinary tract infection , Joint Pain In The Right Hip , Leg Weakness , Lethargy , Lower Back Pain Muscle Spasm , Lump In / On The Skin , Pain, joint, shoulder , Post-nasal drip , Pruritus Ani , Snoring , Tendinitis of left shoulder , Upper Respiratory Infection , Urinary Frequency Increased , Urinary Tract Infection , Visit for preventive health examination Surgical History Surgery Date(Month/Year) Hysterectomy 1999 Section hemorroidectomy and retocele repair Dr Germain hilton 2014 coronary stent 2008 Hospitalization History Reason Date(Month/Year)
--- OUTSIDE RECORDS SUMMARY | 2023-07-04 11:55 | XMS_ITS | Continuity of Care Document ---
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 Refills 6, Maintenance, 02/05/17 10:26:19, Route to Pharmacy Electronically, [id number], [facility]/pharmacy #[id number] Start Date: 02/05/17 Stop [...] 06/07/21 8:26:00 EST, Route to Pharmacy Electronically, [facility]/pharmacy #[id number], Partial fill upon patient request if the prescription is for a schedule II opioid drug.... Start Date: 06/07/21 Status: Ordered Metoprolol Succinate ER 50 mg oral tablet, extended release 1 tablet, By Mouth, Daily, # 90 tablet, 3 Refills, Maintenance, 06/23/22 15:21:00 EST, [id number], 155, cm, 03/21/22 14:56:00 EDT, Height Start Date: 06/23/22 Status: Ordered omeprazole 20 mg oral enteric [...] in household: No entered on: 02/20/17 Sex Note * Event Display: Non BH Lab Results Authored Date: * Event Display: Non BH Lab Results Authored Date: * Event Display: Holter Report Authored Date: * Glenny Luong: PERFORM Event Display: Cardiovascular Results Scanned Authored Date: Patient Care team information Care Team Personnel Name: Waleska Sidhu NP Position: [facility] Office Staff Member Role: PCP Address: Address: [address] [place] [address] [address] [place] [address]- Name: Misty Rhodes Position: [facility] Outreach Member Role: Lifetime Consulting Physician Care Team Related Persons Name: DAVID CONTRERAS Address: [address] [place] [address]
[2023-07-04 11:56] VITALS: BP 136/84; PULSE 72; RESP 15; TEMP 36.2; O2SAT 98; BMI 41.8
--- NOTE | 2023-07-04 11:56 | MHC.OFFVIS ---
Intake Vital Signs 07/04/23 11:56 Height 5 ft 1 in Weight 221 lb 1.978 oz BMI 41.8 BP 136/84 Blood Pressure Location Rt brachial Position Sitting Respiration 15 Pulse 72 Pulse Source Pulse Oximeter Temp 97.2 F Temp Source Tympanic Pulse Oximetry (%) 98 Oxygen Delivery Method Room Air Intake Visit Reasons: OA Allergies acetaminophen [Percocet] Allergy (Intermediate, Verified 07/04/23 12:00) vomiting oxycodone [Percocet] Allergy (Intermediate, Verified 07/04/23 12:00) Vomiting Medication List - Last Reconciled 07/04/23 by Kavon Pond MD aspirin 81 mg PO DAILY hydrocortisone 2.5% appl topical DAILY PRN lisinopril 20 mg PO DAILY metoprolol succinate ER 50 mg PO DAILY omeprazole 40 mg PO QAM rosuvastatin 40 mg PO DAILY [thumb spica splint, right As directed] tramadol 50 mg PO Q12H HPI HPI Comments History of Present Illness Details 62-year-old female with osteoarthritis returns for follow-up. She continues to have sharp shooting pain going down her left thumb when lifting heavy objects or with any overuse. 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 She has similar symptoms on her right thumb. She wears the thumb splint whenever she goes shopping. She has been having pain on the outer aspect of her right hip, she states that her bursitis pain still bothers her, it hurts when she lies on her right side. [facility] Medical History Osteoarthritis of hands, bilateral Hyperlipemia Myocardial infarct, old CAD (coronary artery disease) Lumbar spondylosis Surgical History Hx of section Hx of hysterectomy History of surgery Social History Alcohol intake: never Patient Tobacco Use Status: Former Tobacco user Years Smoked: quit 17 years Review of Systems Musc Reports arthralgias, Reports stiffness and Reports tingling Neuro Reports tingling and Reports paresthesias Physical Exam Vital Signs: Last Vital Signs Temp 97.2 F 07/04/23 11:56 Pulse 72 07/04/23 11:56 Resp 15 07/04/23 11:56 BP 136/84 07/04/23 11:56 Pulse Ox 98 07/04/23 11:56 Oxygen Delivery Method Room Air 07/04/23 11:56 BMI result Body Mass Index 41.8 Const General: cooperative and healthy appearing Nutritional Appearance: obese morbidly obese Orientation/consciousness: patient oriented x3 Limitations: no limitations HEENT Head: Yes normocephalic and Yes atraumatic Resp Effort & Inspection: normal respiratory effort and able to speak in complete sentences Neuro General: patient oriented x3 Extrem Other: Right 1st CMC tenderness Positive Tinel sign on the right with electric shock sensation radiating towards the right middle finger Negative Tinel sign on the left Left 1st CMC tenderness Assessment & Plan Assessment & Plan (1) Osteoarthritis of hands, bilateral: Code(s): M19.041 - Primary osteoarthritis, right hand; M19.042 - Primary osteoarthritis, left hand Qualifiers: Osteoarthritis type: primary Qualified Code(s): M19.041 - Primary osteoarthritis, right hand; M19.042 - Primary osteoarthritis, left hand Plan: 62-year-old female with osteoarthritis returns for follow-up. Patient continues to have intermittent pain at the base of her left thumb with activity. Will prescribe a thumb split for the left hand. Advised patient to use it as much as possible. Continue to use the right thumb spica splint. She takes Tylenol 2 tabs twice daily and tramadol 1 tab twice daily. Stated that Voltaren gel was not helpful in the past. Follow-up in 6 months (2) Paresthesia of hand, bilateral: Code(s): R20.2 - Paresthesia of skin Plan: Bilateral upper extremity EMG/NCV was unremarkable. (3) Trochanteric bursitis, right hip: Code(s): M70.61 - Trochanteric bursitis, right hip Plan: I gave patient a printout of home exercises Plan I spent 24 minutes reviewing patient's chart, evaluating patient, placing orders, counseling patient and documenting in the chart Medications: New [thumb spica splint Left] wear as much as possible throughout the day 1 ea 0RF M18.12 - Unilateral primary osteoarthritis of first carpometacarpal joint, left hand Coding Level of Care Code Est Pt Level 4 (64107) Diagnoses Primary osteoarthritis of both hands M19.041; M19.042 Osteoarthritis type: primary Paresthesia of hand, bilateral R20.2 Trochanteric bursitis, right hip M70.61
== END 2023-07-04 12:17 | disposition home or self-care (01) ==
LOC: HO.RHE 11:53
PROVIDERS: PCP Nurse Practitioner Adult Health; Visit Provider Student in an Organized Health Care Education/Training Program
DX: M19.041 Primary osteoarthritis, right hand (principal); M19.042 Primary osteoarthritis, left hand; R20.2 Paresthesia of skin; M70.61 Trochanteric bursitis, right hip
CPT/HCPCS: 99214

== ENCOUNTER → 2023-07-04 11:53 | Outpatient (BNVA) | payer OTHER, SELFPAY | PROVIDERS: PCP Nurse Practitioner Adult Health; Visit Provider Student in an Organized Health Care Education/Training Program | DX: M19.041 Primary osteoarthritis, right hand (principal); M19.042 Primary osteoarthritis, left hand; M70.61 Trochanteric bursitis, right hip; R20.2 Paresthesia of skin | CPT/HCPCS: 99212 ==

== ENCOUNTER 2024-01-07 11:06 | Outpatient (AMB) | payer OTHER, SELFPAY ==
[2024-01-07 11:14] VITALS: BP 132/76; PULSE 65; O2SAT 100; BMI 43.8
--- NOTE | 2024-01-07 11:14 | A.OFFVIS_ITS ---
Vital Signs 01/07/24 11:14 Height 5 ft 1 in Weight 231 lb 14.821 oz BMI 43.8 BP 132/76 Blood Pressure Location Lt brachial Position Sitting Pulse 65 Pulse Source Pulse Oximeter Pulse Oximetry (%) 100 Oxygen Delivery Method Room Air Intake Visit Reasons: OA Intake Note: Patient last seen 07/04/2023, is following up on osteoarthritis. Patient states she has a lot pain in shoulder blade, down arm, into elbow, and left fingers are sore, and feeling prickling. Allergies acetaminophen [Percocet] Allergy (Intermediate, Verified 01/07/24 11:17) vomiting oxycodone [Percocet] Allergy (Intermediate, Verified 01/07/24 11:17) Vomiting Medication List - Last Reconciled 01/07/24 by Kavon Pond MD aspirin 81 mg PO DAILY hydrocortisone 2.5% appl topical DAILY PRN lansoprazole 30 mg PO DAILY lisinopril 20 mg PO DAILY methocarbamol 500 mg PO Q8H PRN metoprolol succinate ER 50 mg PO DAILY omeprazole 40 mg PO QAM rosuvastatin 40 mg PO DAILY [thumb spica splint Left wear as much as possible throughout the day] [thumb spica splint, right As directed] tramadol 50 mg PO Q12H HPI Comments Details: 63-year-old female with osteoarthritis returns for follow-up. She continues to have intermittent pain and stiffness of her fingers, today she is complaining of stiffness and cracking of her left 3rd PIP. She has been having pain in her neck radiating to her right shoulder and arm, she was evaluated by pain m anagement who suggested an epidural injection, patient did not want to proceed with it. She has done PT for her neck early this year and was taught multiple exercises. She takes tramadol 50 mg daily and takes another tablet as needed. She also takes Tylenol PFSH Medical History Osteoarthritis of hands, bilateral Hyperlipemia Myocardial infarct, old CAD (coronary artery disease) Lumbar spondylosis Surgical History Hx of section Hx of hysterectomy History of surgery Social History Alcohol intake: never Patient Tobacco Use Status: Former Tobacco user Years Smoked: quit 17 years Review of Systems ENT Reports neck pain Musc Reports arthralgias, Reports neck pain, Reports radiating pain into limb and Reports stiffness Neuro Reports paresthesias Physical Exam Vital Signs: Last Vital Signs Pulse 65 01/07/24 11:14 BP 132/76 01/07/24 11:14 Pulse Ox 100 01/07/24 11:14 Oxygen Delivery Method Room Air 01/07/24 11:14 BMI result Body Mass Index 43.8 Const General: cooperative and healthy appearing Nutritional Appearance: obese morbidly obese Orientation/consciousness: patient oriented x3 Limitations: no limitations HEENT Head: Yes normocephalic and Yes atraumatic Resp Effort & Inspection: normal respiratory effort and able to speak in complete sentences Neuro General: patient oriented x3 Extrem Other: Right 1st CMC tenderness Left 3rd PIP tenderness without swelling Negative Spurling's test bilaterally Assessment & Plan Assessment & Plan (1) Osteoarthritis of hands, bilateral: Code(s): M19.041 - Primary osteoarthritis, right hand; M19.042 - Primary osteoarthritis, left hand Category: Medical Qualifiers: Osteoarthritis type: primary Qualified Code(s): M19.041 - Primary osteoarthritis, right hand; M19.042 - Primary osteoarthritis, left hand Plan: 63-year-old female with osteoarthritis returns for follow-up. She continues to have some intermittent pain and stiffness of her fingers, she takes tramadol mg daily and another 50 mg as needed. Also takes Tylenol, symptoms fairly well controlled. Patient reassured Will refill her tramadol but will refill 45 tablets per month rather than 60 tabs (2) Cervicalgia: Code(s): M54.2 - Cervicalgia Category: Medical Plan: She was evaluated by pain management and epidural injection was suggested but patient refused. Her symptoms are minimal, she has done PT earlier this year for her neck Plan I spent 17 minutes reviewing patient's chart, evaluating patient, placing orders, counseling patient and documenting in the chart Coding Level of Care Code Est Pt Level 3 (50089) Diagnoses Primary osteoarthritis of both hands M19.041; M19.042 Osteoarthritis type: primary Cervicalgia M54.2
== END 2024-01-07 11:36 | disposition home or self-care (01) ==
PROVIDERS: PCP Nurse Practitioner Adult Health; Visit Provider Student in an Organized Health Care Education/Training Program
DX: M19.041 Primary osteoarthritis, right hand (principal); M19.042 Primary osteoarthritis, left hand; M54.2 Cervicalgia
CPT/HCPCS: 99213

== ENCOUNTER → 2024-01-07 11:06 | Outpatient (BNVA) | payer OTHER, SELFPAY | PROVIDERS: PCP Nurse Practitioner Adult Health; Visit Provider Student in an Organized Health Care Education/Training Program | DX: M19.042 Primary osteoarthritis, left hand (principal); M19.041 Primary osteoarthritis, right hand; M54.2 Cervicalgia | CPT/HCPCS: 99212 ==

== ENCOUNTER 2025-01-15 13:36 | Outpatient (AMB) | payer OTHER, SELFPAY ==
[2025-01-15 13:43] VITALS: BP 128/80; PULSE 63; O2SAT 98; BMI 41.5
--- NOTE | 2025-01-15 13:43 | A.OFFVIS_ITS ---
Vital Signs 01/15/25 13:43 Height 5 ft 1 in Weight 219 lb 12.814 oz BMI 41.5 BP 128/80 Blood Pressure Location Lt brachial Position Sitting Pulse 63 Pulse Source Pulse Oximeter Pulse Oximetry (%) 98 Oxygen Delivery Method Room Air Intake Visit Reasons: OA Intake Note: Patient presents for osteoarthritis follow up and lab review. Allergies acetaminophen (Percocet) Allergy (Intermediate, Verified 01/15/25 13:48) vomiting oxycodone (Percocet) Allergy (Intermediate, Verified 01/15/25 13:48) Vomiting Medication List - Last Reconciled 01/15/25 by Екатерина Claire MD aspirin 81 mg PO DAILY hydrocortisone 2.5% appl topical DAILY PRN lansoprazole 30 mg PO DAILY lisinopril 20 mg PO DAILY methocarbamol 500 mg PO Q8H PRN metoprolol succinate ER 50 mg PO DAILY omeprazole 40 mg PO QAM rosuvastatin 40 mg PO DAILY [thumb spica splint Left wear as much as possible throughout the day] [thumb spica splint, right As directed] tramadol 75 mg (1.5 x 50 mg) PO DAILY 30 days HPI Comments Details: Patient is a 64 y.o. female with HTN, HLD c/b CAD and stenting in 2009, GERD, and polyarticular OA here today for follow up Interval History: Patient last seen 01/07/[address] Pond - On Tramadol 50mg daily - Follow up for polyarticular OA - No changes made to her medications Today, - On Tramadol 50mg daily - C/o swelling to her right 4th digit for the past 3 weeks, associated with numbness and tingling Rheumatologic History: OA Current Rheumatology Medication(s): Tramadol 75mg daily PFSH Medical History Osteoarthritis of hands, bilateral Hyperlipemia Myocardial infarct, old CAD (coronary artery disease) Lumbar spondylosis Surgical History Hx of section Hx of hysterectomy History of surgery Social History Alcohol intake: never Patient Tobacco Use Status: Former Tobacco user Years Smoked: quit 17 years Review of Systems Const Details: Review of Systems Constitutional: Denies fever, chills, weight loss ENT: Denies vision changes, eye pain or eye redness, dental caries, dry mouth GI: Denies nausea, vomiting, diarrhea, abdominal pain, change in BM Pulm: Denies SOB, VARMA, hemoptysis, wheezing Cards: Denies chest pain, palpitations Skin: Denies Raynaud's, rash, nail changes, photosensitivity, INTELLIGENT SYSTEMS ENGINEER: Denies headaches, weakness, paresthesias, recurrent falls MSK: as per HPI All other systems reviewed and are unremarkable except noted above Physical Exam Exam Exam: Vital signs reviewed Physical Examination CONSTITUITIONAL Patient alert and cooperative. Well appearing and in no apparent painful distress MSK Hands * Right Hand: Not able to make a fist. 4th digit with fusiform swelling with TTP of the 4th MCP, PIP and DIP. TTP 1st CMC with positive grind test * Left Hand: Able to make a fist. No swelling or tenderness to palpation of these joints. No deformities noted. Wrists * Right Wrist: Full ROM. 70 degrees of wrist flexion, 80 degrees of wrist extension. No swelling or TTP * Left Wrist: Full ROM. 70 degrees of wrist flexion, 80 degrees of wrist extension. No swelling or TTP Elbows * Right Elbow: Full ROM. No swelling or TTP. TTP of the lateral epicondyle * Left Elbow: Full ROM. No swelling or TTP. No TTP of the medial and lateral epicondyles Shoulders * Right shoulder: Full ROM. No swelling noted. No TTP of the subacromial bursa or posterior shoulder * Left shoulder: Full ROM. No swelling noted. No TTP of the subacromial bursa or posterior shoulder * TTP of the bilateral AC joints Knees * Right knee: Full ROM. No swelling noted. TTP of the knee joint line, Crepitations felt * Left knee: Full ROM. No swelling noted. TTP of the knee joint line, Crepitations felt Ankles * Right ankle: Good ankle dorsiflexion and plantar flexion. No swelling. No TTP of the ankle joint * Left ankle: Good ankle dorsiflexion and plantar flexion. No swelling. No TTP of the ankle joint Feet * Right foot: Negative squeeze test * Left foot: Negative squeeze test * 1st MTP TTP bilaterally Tender points? * No tenderness to palpation of the bilateral trapezius, supraspinatus, anterior costochondral junctions, bilateral suboccipital muscle insertions SKIN No rashes No nail changes Vital Signs: Last Vital Signs Pulse 63 01/15/25 13:43 BP 128/80 01/15/25 13:43 Pulse Ox 98 01/15/25 13:43 Oxygen Delivery Method Room Air 01/15/25 13:43 BMI result Body Mass Index 41.5 Results Reviewed Results Reviewed: 10/02/24 WBC 5.1 Hb 12.8 Plt 35 BUN 13 Cr 0.73 eGFR 93 ESR 42 H CRP 0.40 XR Right Hand 06/2022 FINDINGS: There is mild loss of first carpometacarpal joint space with periarticular spurring. The MCP, PIP and DIP joint spaces are maintained normal. No visible fracture, dislocation or subluxation seen. IMPRESSION: Mild degenerative changes first carpometacarpal joint space. Rest of the right hand appears unremarkable. XR Bilateral Hands 04/2021 FINDINGS: Right hand: Negligible osteophyte formation at first carpometacarpal joint, 2nd MCP joint and some of the DIP joints. The joint spaces are well-preserved in the hand and wrist. No periarticular osteoporosis. No erosions or periostitis. No focal soft tissue swelling. No abnormal soft tissue calcifications. Left hand: Negligible osteophyte formation at the first carpometacarpal joint. No significant degenerative changes in the hand or wrist. No periarticular osteoporosis, erosions or periostitis. No abnormal soft tissue calcification or focal soft tissue swelling. IMPRESSION: Minimal osteoarthrosis of first carpometacarpal joints and of a few DIP joints of the hands. No significant arthritic changes. There is no evidence of an inflammatory arthropathy. Assessment & Plan Assessment & Plan (1) Polyarticular osteoarthritis: Code(s): M15.9 - Polyosteoarthritis, unspecified Plan: #Polyarticular OA Patient is a 64 y.o. female with polyarticular OA here today for follow up Today she has dactylitis involving her right ring finger. Differentials: infection, psoriatic arthritis, neuropathy, OA Will evaluate further Plan - MR Right Hand - Right Hand EMG - Labs: CBC, CMP, ESR, CRP, RF, CCP, HLA B27 - RTC 6 months or sooner if significant lab results Plan I spent 30 minutes reviewing the record and labs, taking a history, examining the patient, discussing the treatment plan, ordering diagnostic work up and documenting in the medical record Orders: Orders NE nerve conduction velocity Today G56.20 - Lesion of ulnar nerve, unspecified upper limb Complete Blood Count Auto Diff Today M19.041 - Primary osteoarthritis, right robert nd, M19.042 - Primary osteoarthritis, left hand Comprehensive Met. Panel Today M19.041 - Primary osteoarthritis, right hand, M19.042 - Primary osteoarthritis, left hand Erythrocyte Sedimentation Rate Today M19.041 - Primary osteoarthritis, right hand, M19.042 - Primary osteoarthritis, left hand Cyclic Citrullinated Peptide Today M19.041 - Primary osteoarthritis, right hand, M19.042 - Primary osteoarthritis, left hand Rheumatoid Factor Today M19.041 - Primary osteoarthritis, right hand, M19.042 - Primary osteoarthritis, left hand MR hand RT wo con Today M79.89 - Other specified soft tissue disorders NE electromyogram (EMG) Today G56.20 - Lesion of ulnar nerve, unspecified upper limb C Reactive Protein Today M19.041 - Primary osteoarthritis, right hand, M19.042 - Primary osteoarthritis, left hand HLA B27 Today M19.041 - Primary osteoarthritis, right hand, M19.042 - Primary osteoarthritis, left hand Medications: Changed From tramadol 75 mg (1.5 x 50 mg) PO DAILY PRN 45 tabs 4RF pain M19.041 - Primary osteoarthritis, right hand, M19.042 - Primary osteoarthritis, left hand To tramadol 75 mg (1.5 x 50 mg) PO DAILY 45 tabs 5RF pain 30 days M19.041 - Primary osteoarthritis, right hand, M19.042 - Primary osteoarthritis, left hand Coding Level of Care Code Est Pt Level 4 (59669) Diagnoses Polyarticular osteoarthritis M15.9
== END 2025-01-15 14:34 | disposition home or self-care (01) ==
LOC: HO.RHES 13:36
PROVIDERS: PCP Nurse Practitioner Adult Health; Visit Provider Student in an Organized Health Care Education/Training Program
DX: M15.9 Polyosteoarthritis, unspecified (principal)
CPT/HCPCS: 99214

== ENCOUNTER → 2025-01-15 13:36 | Outpatient (BNVA) | payer OTHER, SELFPAY | PROVIDERS: PCP Nurse Practitioner Adult Health; Visit Provider Student in an Organized Health Care Education/Training Program | DX: M13.89 Other specified arthritis, multiple sites (principal) | CPT/HCPCS: 99212 ==

== ENCOUNTER 2025-01-19 11:58 | Outpatient (REF) | payer OTHER, SELFPAY ==
--- OUTSIDE RECORDS SUMMARY | 2025-01-19 13:25 | XMS_ITS | Clinical Summary ---
Author Organization [facility] [address] [place] [address] [place] [phone] Phone Care Team Providers Care Sole Molding Machine Operator Name Role Phone Sree Espinal MD Primary Care Provider [phone] Allergies Active Allergy Reactions Criticality Noted Date Comments Oxycodone-Acetaminophen 03/23/2009 Medications lisinopriL (PRINIVIL,ZESTR IL) 20 mg tablet Take 1 tablet (20 mg total) by mouth 1 (one) time each day. 9 Active rosuvastatin (CRESTOR) 20 mg tablet Take 1 tablet (20 mg total) by mouth 1 (one) time each day. 2 Active metoprolol succinate (TOPROL-XL) 50 mg 24 hr tablet Take 1 tablet (50 mg total) by mouth 1 (one) time each day. 9 Active aspirin (ASPIR-81 ORAL) Take 1 tablet by mouth 1 (one) time each day. Active traMADoL (ULTRAM) 50 mg tablet Take 1 tablet (50 mg total) by mouth every 12 (twelve) hours if needed. Active blood-glucose meter kit Check sugars once daily E11.9 Active FREESTYLE LANCETS MISC Check sugars once daily Active glucose blood test strip Check sugars once daily E11.9 Active metFORMIN XR (GLUCOPHAGE-XR) 500 mg 24 hr tablet TAKE 1 TABLET WITH BREAKFAST EVERY DAY 90 tablet 1 5 Active lansoprazole (PREVACID) [address] capsule Take 1 capsule (30 mg total) by mouth 1 (one) time each day before breakfast. Take by mouth. - Oral 90 capsule 1 5 Active hydrocortisone 2.5 % cream Apply topically 2 (two) times a day if needed for irritation or rash. 30 g 2 5 08/27/19 Active Active Problems Problem Noted Date Diagnosed Date Chronic tension-type headache 06/20/2022 Mixed anxiety and depressive disorder 06/20/2022 Primary osteoarthritis 06/20/2022 Type 2 diabetes mellitus wit hout complication ([facility] V24, [facility] V28) 06/20/2022 Atherosclerotic heart diseas e of [place] coronary artery without angina pectoris 02/13/2016 Fibromyalgia 02/13/2016 Gastro-esophageal reflux disease without esophag itis 02/13/2016 Degenerative joint disease (DJD) of lumbar spine 01/20/2016 Diverticulosis of colon 08/12/2015 Essential hypertension 08/12/2015 Hyperlipidemia 08/12/2015 Internal hemorrhoids with complication 5 Back muscle spasm 10/27/2014 Irritable bowel syndrome 10/27/2014 Arthropathy of ankle and foot 02/03/2014 Past myocardial infarction 01/13/2013 Ischemic heart disease 12/01/1904 Encounters Date Type Department Care Team Description 10/28/2024 Telephone Internal Medicine - [address] [phone] Sree Espinal MD Joseph: Letter(jury duty) from Last 3 Months Social History Tobacco Use Types Packs/Day Years Used Date Smoking Tobacco: Former Smokeless Tobacco: Never Tobacco Cessation:Counseling Given: Not Answered Comments Unknown Sex and Gender Information Value Date Recorded Sex Assigned at Not on file Legal Sex Female 9:40 AM EST Gender Identity Not on file Sexual Orientation Not on file Obstetrics History Last Filed Vital Signs Vital Sign Reading Time Taken Comments Blood Pressure 138/86 08/26/2024 11:36 AM EDT Pulse 72 08/26/2024 11:36 AM EDT Temperature 36.6 C (97.8 F) 07/23/2024 11:17 AM EST Respiratory Rate 15 04/21/2024 2:08 PM EST Oxygen Saturation 99% 08/26/2024 11:36 AM EDT Inhaled Oxygen Concentration - - Weight 97.3 kg (214 lb 6.4 oz) 07/23/2024 11:17 AM EST Height 154.9 cm (5' 1 ) 07/23/2024 11:17 AM EST Body Mass Index 40.51 07/23/2024 11:17 AM EST Plan of Treatment Upcoming Encounters Date Type Department Care Team (Late st Contact Info) Description 01/26/2025 11:00 AM EDT Office Visit Internal Medicine - [place] [address] [facility] [address] [place] [phone] Sree Espinal MD [address] [facility] [address] [place] [address] Health Maintenance Due Date Last Done Comments Diabetes: Annual Foot Exam 1972 Diabetes: Annual Retina Eye Exam 1972 DTaP,Tdap,and Td Vaccines (1 - Tdap) 1981 Pneumococcal Vaccine: 50+ Years (1 of 2 - PCV) 1981 Cervical Cancer Screening: P ap Smear 09/08/1983 Zoster Vaccines (1 of 2) 2012 HIV Screening 05/01/2022 Hepatitis C Screening 05/01/2022 Social Influencers of Health Screening 05/01/2022 RSV Immunization Adult Patients (1 - Risk 60-74 years 1-dose series) 2022 Breast Cancer Screening 11/10/2023 11/10/19, 06/15/2020 COVID-19 Vaccine (4 - 2023-2 5 season) 2024 06/16/2021, 09/20/2020, 08/23/2020 Depression Screening 06/03/2024 Influenza Vaccine (#1) 2025 Diabetes: Annual Urine Albumin-Creatinine Ratio (uACR) 02/25/2025 02/26/2024 Diabetes: Blood Sugar Contro l Test (HGBA1C) 04/03/2025 10/01/2024, 02/26/2024, 02/26/2024 Diabetes: Annual GFR (Glomerular Filtration Rate) 10/01/2025 10/01/2024, 02/26/2024, 02/26/2024 Hypertension/CHF/CAD Annual BMP Blood Test 10/01/2025 10/01/2024, 02/26/2024, 02/26/2024 Colorectal Cancer Screening: Colonoscopy 07/30/2027 07/30/2022 Cholesterol Screening (Lipid Panel) 10/01/2029 10/01/2024, 02/26/2024, 02/26/2024 HIB Vaccines Aged Out No longer eligi ble based on patient's age to complete this topic HPV Vaccines Aged Out No longer eligi ble based on patient's age to complete this topic Hepatitis A Vaccines Aged Out No long er eligible based on patient's age to complete this topic Hepatitis B Vaccines Aged Out No long er eligible based on patient's age to complete this topic IPV Vaccines Aged Out No longer eligi ble based on patient's age to complete this topic MMR Vaccines Aged Out No longer eligi ble based on patient's age to complete this topic Meningococcal ACWY Vaccine Aged Out N o longer eligible based on patient's age to complete this topic Meningococcal B Vaccine Aged Out No l onger eligible based on patient's age to complete this topic RSV Immunization Patients Under 20 months Aged Out No longer eligible b ased on patient's age to complete this topic Varicella Vaccines Aged Out No longer eligible based on patient's age to complete this topic Procedures Procedure Name Priority Date/Time Associated Diagnosis Comments COMPREHENSIVE METABOLIC PANEL Routine 10/01/2024 10:41 AM EDT Cervicalgia Lumbar spondylosis HEMOGLOBIN A1C Routine 10/01/2024 10:41 AM EDT Type 2 diabetes mellitus without complication, without long-term current use of insulin ([facility] V24, [facility] V28) LIPID PANEL WITH REFLEX TO DIRECT LDL Routine 10/01/2024 10:41 AM EDT Type 2 diabetes mellitus without complication, without long-term current use of insulin ([facility] V24, [facility] V28) Hyperlipidemia, unspecified hyperlipidemia type URINE ALBUMIN CREATININE RATIO Routine 02/26/2024 COLONOSCOPY Routine 07/30/2022 ANAND SCREENING DIGITAL Routine 11/09/2021 3:08 PM EDT Encounter for screening mammogram for malignant neoplasm of breast from Last 3 Months or Most Recently Relevant to Health Maintenance Results * (ABNORMAL) Lipid panel with reflex to direct LDL (10/01/2024 10:41 AM EDT) Cholesterol 258(H) 0 - 200 mg/dL LAB CHEMISTRY METHOD 10/01/2024 12:05 PM T [facility] Triglycerides 118 0 - 150 mg/dL LAB CHEMISTRY METHOD 10/01/2024 12:05 PM EDT [facility] HDL 61 >=40 mg/dL LAB CHEMISTRY METHOD 10/01/2024 12:05 PM EDT [facility] LDL Calculated 173(H) 0 - 100 mg/dL LAB CHEMISTRY METHOD 10/01/2024 12:05 PM [facility] VLDL Cholesterol Guille 23.6 mg/dL LAB CHEMISTRY METHOD 10/01/2024 12:05 PM [facility] Non HDL Chol. (LDL+VLDL) 197(H) <145 mg/dL LAB CHEMISTRY METHOD 10/01/2024 12:05 PM [facility] Chol/HDL Ratio 4.2 0.0 - 4.4 LAB CHEMISTRY METHOD 10/01/2024 12:05 PM [facility] Blood Venous blood specimen / Unknown Venipuncture / Unknown 10/01/2024 10:41 AM EDT 10/01/2024 10:57 AM EDT us Jerri ANDREWS LAB BLOOD ORDERABLES Final Resul t [facility] [address] [place] [address], * Hemoglobin A1c (10/01/2024 10:41 AM EDT) Hemoglobin A1C 6.2 <6.5 % LAB CHEMISTRY METHOD 10/01/2024 1:51 PM EDT [facility] Mean Bld Glu Estim. 131 mg/dL LAB CHEMISTRY METHOD 10/01/2024 1:51 PM [facility] Blood Venous blood specimen / Unknown Venipuncture / Unknown 10/01/2024 10:41 AM EDT 10/01/2024 10:54 AM EDT us Jerri ANDREWS LAB BLOOD ORDERABLES Final Resul t [facility] [address] [place] [address], [place] [phone] * (ABNORMAL) Comprehensive metabolic panel (10/01/2024 10:41 AM EDT) Sodium 139 133 - 145 mmol/L LAB CHEMISTRY METHOD 10/01/2024 12:05 PM [facility] Potassium 4.1 3.5 - 5.5 mmol/L LAB CHEMISTRY METHOD 10/01/2024 12:05 PM [facility] Chloride 106 96 - 110 mmol/L LAB CHEMISTRY METHOD 10/01/2024 12:05 PM [facility] CO2 26 21 - 32 mmol/L LAB CHEMISTRY METHOD 10/01/2024 12:05 PM [facility] Anion Gap 7 3 - 11 LAB CHEMISTRY METHOD 10/01/2024 12:05 PM [facility] Glucose 109(H) 70 - 100 mg/dL LAB CHEMISTRY METHOD 10/01/2024 12:05 PM [facility] BUN 13 5 - 25 mg/dL LAB CHEMISTRY METHOD 10/01/2024 12:05 PM [facility] Creatinine 0.73 0.50 - 1.10 mg/dL LAB CHEMISTRY METHOD 10/01/2024 12:05 PM [facility] eGFR 93 >=60 mL/min/1. 73m2 LAB CHEMISTRY METHOD 10/01/2024 12:05 PM [facility] Comment:Calculation based on the Chronic Kidney Disease Epidemiology Collaboration (CKD-EPI) equation refit without adjustment for race. BUN/Creatinine Ratio 17.8 LAB CHEMISTRY METHOD 10/01/2024 12:05 PM [facility] Calcium 9.9 8.5 - 10.5 mg/dL LAB CHEMISTRY METHOD 10/01/2024 12:05 PM [facility] AST (SGOT) 13 10 - 42 unit/L LAB CHEMISTRY METHOD 10/01/2024 12:05 PM [facility] ALT (SGPT) 17 10 - 60 unit/L LAB CHEMISTRY METHOD 10/01/2024 12:05 PM [facility] Alkaline Phosphatase 84 42 - 121 unit/L LAB CHEMISTRY METHOD 10/01/2024 12:05 PM [facility] Total Protein 7.7 6.0 - 8.0 g/dL LAB CHEMISTRY METHOD 10/01/2024 12:05 PM [facility] Albumin 3.7 3.2 - 5.0 g/dL LAB CHEMISTRY METHOD 10/01/2024 12:05 PM [facility] Total Bilirubin 0.3 0.0 - 1.4 mg/dL LAB CHEMISTRY METHOD 10/01/2024 12:05 PM [facility] Blood Venous blood specimen / Unknown Venipuncture / Unknown 10/01/2024 10:41 AM EDT 10/01/2024 10:57 AM EDT us Andrea Pierson MD LAB BLOOD ORDERABLES Josseline l Result [facility] [address] [place] [address], [place] [phone] * Urine Albumin Creatinine Ratio (02/26/2024) Pathologist [facility] Urine Albumin Creatinine Ratio Abstracted us Historical Provider HEALTH MAINTENANCE Final Result * Colonoscopy (07/30/2022) HM Colonoscopy Abstracted, Positive Anatomical Region Laterality Modality Other us Historical Provider HEALTH MAINTENANCE Final Result * ANAND SCREENING DIGITAL (11/09/2021 3:08 PM EDT) Anatomical Region Laterality Modality Mammography 11/09/2021 11:1 2 AM EDT Narrative 11/09/2021 3:08 PM EDT [facility] Diagnostic Imaging Department [address] [place] [id number] Patient: ARIANA BROWNE /Age/Sex: 1960 - 61 - F Unit#: [id number] Location/Status: [facility] CLI Mnemonic/Ordering [facility] Ordering Physician: CINDY WHITE ADULT BASIC EDUCATION MANAGER Anand Screening Digital - 11/09/21 - 1137 History: Bilateral breast cancer screening. Technique: Digital mammography. Conventional CC and MLO projections with tomosynthesis MLO views and computer aided detection. Comparison: [facility] 06/15/2020, dating back to 08/26/2003. Findings: Breast tissue consists of a combination of fatty and fibroglandular elements (category b density) (as calculated by Zoomphpara software). There are benign calcifications bilaterally. No suspicious group of calcification, architectural distortion, suspicious mass or suspicious asymmetry. Impression: No evidence of malignancy. BIRADS Category 2, benign findings, 3342F [id number], [id number] Note: Patient information entered into a reminder system with a target due date for the next mammogram: CPT II 7025F Dictating Physician: MIKE BYNUM MD Electronically Signed by: MIKE BYNUM MD Dic Date/Time: 11/09/21 1505 Sign date/Time: 11/09/21 1508 Procedure Note Mike Bynum MD - 05/23/2022 [facility] Diagnostic Imaging Department [address] [place], [place] [id number] Patient: ARIANA BROWNE /Age/Sex: 1960 - 61 - F Unit#: [id number] Location/Status: [facility] Mnemonic/Ordering Site: [facility] Ordering Physician: CINDY WHITE ADULT BASIC EDUCATION MANAGER Anand Screening Digital - 11/09/21 - 1137 History: Bilateral breast cancer screening. Technique: Digital mammography. Conventional CC and MLO projections with tomosynthesis MLO views and computer aided detection. Comparison: [facility] 06/15/2020, dating back to 08/26/2003. Findings: Breast tissue consists of a combination of fatty andfibroglandular elements (category b density) (as calculated by Zoomphpara software).There are benign calcifications bilaterally. No suspicious group ofcalcification, architectural distortion, suspicious mass or suspicious asymmetry. Impression: No evidence of malignancy. BIRADS Category 2, benign findings, 3342F [address]30, [id number] Note: Patient information entered into a reminder system with a target duedate for the next mammogram: CPT II 7025F Dictating Physician: MIKE BYNUM MD Electronically Signed by: MIKE BYNUM MD Dic Date/Time: 11/09/21 1505 Sign date/Time: 11/09/21 1508 Cindy White ADULT BASIC EDUCATION MANAGER IMG BI PROCEDURES Final Re sult from Last 3 Months or Most Recently Relevant to Health Maintenance Insurance [facility] [employer] Care Teams Sole Molding Machine Operator Relationship Specialty Start Date End Date Sree Espinal MD [address] [place] [id number] PCP - General 01/16/24
[2025-01-19 18:35] LABS: MANUAL DIFF FLAG NO
[2025-01-19 18:52] LABS: Alanine Aminotransferase 11 U/L (0-31); Albumin Level 4.3 g/dL (3.5-5.0); Alkaline Phosphatase 66 U/L (39-117); Anion Gap 12 (12-20); Aspartate Amino Transferase 23 U/L (5-31); Blood Urea Nitrogen 13 mg/dL (9-16); Calcium 9.3 mg/dL (8.4-10.2); Carbon Dioxide 25 mmol/L (22-29); Chloride 109 mmol/L (96-108); Estimated Glomerular Filt Rate > 60; Potassium 3.7 mmol/L (3.3-5.1); Sodium 142 mmol/L (135-145); Total Protein 7.4 g/dL (6.5-8.0)
[2025-01-19 19:08] LABS: Hematocrit 38.3 % (37.0-47.0); Hemoglobin 12.6 g/dl (12.0-16.0); Imm Gran Abs Auto 0.02 X10*3/uL (0.00-0.03); Imm Gran Pct Auto 0.4 % (0.0-0.4); Lymphocytes Absolute Auto 1.4 X10*3/uL (1.2-4.9); Mean Corpuscular HGB Conc 32.9 g/dl (31.0-35.0); Mean Corpuscular Hemoglobin 27.3 pg (27.0-33.0); Mean Corpuscular Volume 82.9 fL (80.0-98.0); NRBC Abs Auto 0.000 X10*3/uL (0.0-0.012); NRBC Pct Auto 0.0 /100WBC (0.0-0.2); Platelet Count 365 X10*3/uL (160-400); Red Blood Count 4.62 X10*6/uL (4.20-5.50); White Blood Count 4.9 X10*3/uL (4.8-10.8)
[2025-01-24 07:24] LABS: HLA B27 Positive (Negative)
== END 2025-01-19 11:59 | disposition home or self-care (01) ==
LOC: HO.HKASLDS 11:58
PROVIDERS: Visit Provider Student in an Organized Health Care Education/Training Program
DX: M19.041 Primary osteoarthritis, right hand (principal); M19.042 Primary osteoarthritis, left hand
CPT/HCPCS: 36415; 80053; 85025; 85652; 86140; 86200; 86431; 86812

== ENCOUNTER 2025-02-13 10:57 | Outpatient (REF) | payer OTHER, SELFPAY ==
--- OUTSIDE RECORDS SUMMARY | 2025-02-13 11:00 | XMS_ITS | Clinical Summary ---
Author Organization [facility] [address] [place] [address] [place] [phone] Phone Care Team Providers Care Leisure Studies Professor Name Role Phone Sree Espinal MD Primary Care Provider [phone] Allergies Active Allergy Reactions Criticality Noted Date Comments Doxycycline 01/26/2025 Oxycodone-Acetaminophen 03/23/2009 Medications lisinopriL (PRINIVIL,ZEST RIL) 20 mg tablet Take 1 tablet (20 [...] sugars once daily E11.9 Active metFORMIN XR (GLUCOPHAGE-XR ) 500 mg 24 hr tablet TAKE 1 [...] irritation or rash. 30 g 2 5 Active hydrocortisone 2.5 % cream Apply topically 2 (two) times a day if needed for irritation or rash. 30 g 2 5 01/27/20 25 Discontinu ed(Reorder ) Active Problems Problem Noted Date Diagnosed Date Chronic tension-type headache 06/20/2022 Mixed anxiety and depressive disorder 06/20/2022 Primary osteoarthritis 06/20/2022 Type 2 diabetes mellitus wit hout complication ([facility], [facility] V28) 06/20/2022 Atherosclerotic heart diseas e of [place] coronary artery without angina pectoris 02/13/2016 Fibromyalgia [...] Encounters Date Type Department Care Team Description 01/26/2025 11:00 AM EDT Office Visit Internal Medicine [address] [phone] Sree Espinal MD Type 2 diabetes mellitus without complication, without long-term current use of insulin ([facility] V[facility], [facility] V28) (Primary Dx); Essential hypertension; Hypercholesterolemia; Overweight 01/26/2025 Telephone Internal Medicine [address] [address] Sree Espinal MD from Last 3 Months Social History Tobacco [...] Sign Reading Time Taken Comments Blood Pressure 150/100 01/26/2025 11:26 AM EDT Pulse 60 01/26/2025 11:26 AM EDT Temperature 36.3 C (97.3 F) 01/26/2025 11:26 AM EDT Respiratory Rate 15 04/21/2024 2:08 PM EST Oxygen Saturation 98% 01/26/2025 11:26 AM EDT Inhaled Oxygen Concentration - - Weight 97.1 kg (214 lb) 01/26/2025 11:26 AM EDT Height 154.9 cm (5' 1 ) 01/26/2025 11:26 AM EDT Body Mass Index 40.43 01/26/2025 11:26 AM EDT Plan of Treatment Upcoming Encounters Date Type Department Care Team (Late st Contact Info) Description 2025 11:00 AM EDT Office Visit Bariatric Surgery - [address] [place] [address] Marlon Ayala MD [address] [place] [phone] Health Maintenance Due Date Last Done Comments [...] 1-dose series) 2022 Breast Cancer Screening 11/10/2023 11/10/19 22, 06/15/2020 Depression Screening 06/03/2024 COVID-19 Vaccine (4 - 2024-2 6 season) 2025 06/16/2021, 09/20/2020, 08/23/2020 Influenza Vaccine (#1) 2025 Diabetes: Annual Urine [...] complication, without long-term current use of insulin ([facility] V[facility], [facility] V28) LIPID PANEL WITH REFLEX TO DIRECT LDL Routine 10/01/2024 10:41 AM EDT Type 2 diabetes mellitus without complication, without long-term current use of insulin ([facility] V[facility], [facility] V28) Hyperlipidemia, unspecified hyperlipidemia type URINE ALBUMIN CREATININE RATIO Routine 02/26/2024 COLONOSCOPY Routine 07/30/2022 [facility] SCREENING DIGITAL Routine 11/09/2021 3:08 PM EDT Encounter for screening mammogram for malignant neoplasm of breast from Last 3 Months or Most Recently Relevant to Health Maintenance Results * (ABNORMAL) Lipid panel with reflex to direct LDL (10/01/2024 10:41 AM EDT) Cholesterol 258(H) 0 - 200 mg/dL LAB CHEMISTRY [facility] Triglycerides 118 0 - 150 mg/dL LAB CHEMISTRY METHOD 10/01/2024 12:05 PM [facility] HDL 61 >=40 mg/dL LAB CHEMISTRY METHOD 10/01/2024 12:05 PM [facility] LDL Calculated 173(H) 0 - 100 mg/dL LAB CHEMISTRY METHOD 10/01/2024 12:05 PM [facility] VLDL Cholesterol Guille 23.6 mg/dL LAB CHEMISTRY METHOD 10/01/2024 12:05 PM [facility] Non HDL Chol. (LDL+VLDL) 197(H) <145 mg/dL LAB CHEMISTRY METHOD 10/01/2024 12:05 PM [facility] Chol/HDL Ratio 4.2 0.0 - 4.4 LAB CHEMISTRY METHOD 10/01/2024 12:05 PM [facility] Blood Venous blood specimen / Unknown Venipuncture / Unknown 10/01/2024 10:41 AM EDT 10/01/2024 10:57 AM EDT Jerri ANDREWS LAB BLOOD ORDERABLES Final Resul t [facility] [address] [place] [address], [place] [phone] * Hemoglobin A1c (10/01/2024 10:41 AM EDT) Pathologist [facility] Hemoglobin A1C 6.2 <6.5 % LAB CHEMISTRY METHOD 10/01/2024 1:51 PM EDT [facility] Mean Bld Glu Estim. 131 mg/dL LAB CHEMISTRY METHOD 10/01/2024 1:51 PM EDT [facility] Blood Venous blood specimen / Unknown Venipuncture / Unknown 10/01/2024 10:41 AM EDT 10/01/2024 10:54 AM EDT Jerri ANDREWS LAB BLOOD ORDERABLES Final Resul t Performing Organization Address [facility]/ZIP Co de Phone Number [facility] [address] [place] [address], [place] [phone] * (ABNORMAL) Comprehensive metabolic panel (10/01/2024 10:41 AM EDT) [facility] Sodium 139 133 - 145 mmol/L LAB CHEMISTRY METHOD 10/01/2024 12:05 PM [facility] Potassium 4.1 3.5 - 5.5 mmol/L LAB CHEMISTRY METHOD 10/01/2024 12:05 PM [facility] Chloride 106 96 - 110 mmol/L LAB CHEMISTRY METHOD 10/01/2024 12:05 PM [facility] CO2 26 21 - 32 mmol/L LAB CHEMISTRY METHOD 10/01/2024 12:05 PM [facility] Anion Gap 7 3 - 11 LAB CHEMISTRY METHOD 10/01/2024 12:05 PM [facility] Glucose 109(H) 70 - 100 mg/dL LAB CHEMISTRY METHOD 10/01/2024 12:05 PM [facility] BUN 13 5 - 25 mg/dL LAB CHEMISTRY METHOD 10/01/2024 12:05 PM [facility] Creatinine 0.73 0.50 - 1.10 mg/dL LAB CHEMISTRY METHOD 10/01/2024 12:05 PM [facility] eGFR 93 >=60 mL/min/1. 73m2 LAB CHEMISTRY METHOD 10/01/2024 12:05 PM [facility] Comment:Calculation based on the Chronic Kidney Disease Epidemiology Collaboration (CKD-EPI) equation refit without adjustment for race. BUN/Creatinine Ratio 17.8 LAB CHEMISTRY METHOD 10/01/2024 12:05 PM [facility] Calcium 9.9 8.5 - 10.5 mg/dL LAB CHEMISTRY METHOD 10/01/2024 12:05 PM [facility] AST (SGOT) 13 10 - 42 unit/L LAB CHEMISTRY METHOD 10/01/2024 12:05 PM [facility] ALT (SGPT) 17 10 - 60 unit/L LAB CHEMISTRY METHOD 10/01/2024 12:05 PM [facility] Alkaline Phosphatase 84 42 - 121 unit/L LAB CHEMISTRY METHOD 10/01/2024 12:05 PM [facility] Total Protein 7.7 6.0 - 8.0 g/dL LAB CHEMISTRY METHOD 10/01/2024 12:05 PM [facility] Albumin 3.7 3.2 - 5.0 g/dL LAB CHEMISTRY METHOD 10/01/2024 12:05 PM [facility] Total Bilirubin 0.3 0.0 - 1.4 mg/dL LAB CHEMISTRY METHOD 10/01/2024 12:05 PM [facility] Blood Venous blood specimen / Unknown Venipuncture / Unknown 10/01/2024 10:41 AM EDT 10/01/2024 10:57 AM EDT us Andrea Garner Pierson MD LAB BLOOD ORDERABLES Josseline l Result [facility] [address] [place] [address], [place] [phone] * Urine Albumin Creatinine Ratio (02/26/2024) Urine Albumin Creatinine Ratio Abstracted Historical Provider HEALTH MAINTENANCE Final Result * Colonoscopy (07/30/2022) Colonoscopy Abstracted, Positive Anatomical Region Laterality Modality Other Historical Provider HEALTH MAINTENANCE Final Result * [facility] SCREENING DIGITAL (11/09/2021 3:08 PM EDT) Anatomical Region Laterality Modality Mammography 11/09/2021 11:1 2 AM EDT Narrative 11/09/2021 3:08 PM EDT [facility] Diagnostic Imaging Department [address] [place] [address] Patient: ARIANA BROWNE /Age/Sex: 1960 - 61 - F Unit#: [id number] Location/Status: [facility] CLI Mnemonic/Ordering Site: DIGSC/SPMAM Ordering Physician: CINDY WHITE SENIOR QUANTITY SURVEYOR Anand Screening Digital - 11/09/215 History: Bilateral breast cancer screening. Technique: Digital mammography. Conventional CC and MLO projections with tomosynthesis MLO views and computer aided detection. Comparison: [facility] 06/15/2020, dating back to 08/26/2003. Findings: Breast tissue consists of a combination of fatty and fibroglandular elements (category b density) (as calculated by [employer] software). There are benign calcifications bilaterally. No suspicious group of calcification, architectural distortion, suspicious mass or suspicious asymmetry. Impression: No evidence of malignancy. BIRADS Category 2, benign findings, 3342F [id number], [id number] Note: Patient information entered into a reminder system with a target due date for the next mammogram: CPT II 7025F Dictating Physician: MIKE BYNUM MD Electronically Signed by: MIKE BYNUM MD Dic Date/Time: 11/09/21 1505 Sign date/Time: 11/09/21 1508 Procedure Note Mike Bynum MD - 05/23/2022 [facility] Diagnostic Imaging Department [address] [place] [address] Patient: ARIANA BROWNE /Age/Sex: 1960 - 61 - F Unit#: [id number] Location/Status: [facility] Mnemonic/Ordering Site: [facility] Ordering Physician: CINDY WHITE SENIOR QUANTITY SURVEYOR Anand Screening Digital - 11/09/217 History: Bilateral breast cancer screening. Technique: Digital mammography. Conventional CC and MLO projections with tomosynthesis MLO views and computer aided detection. Comparison: [facility] 06/15/2020, dating back to 08/26/2003. Findings: Breast tissue consists of a combination of fatty andfibroglandular elements (category b density) (as calculated by [employer] software).There are benign calcifications bilaterally. No suspicious group ofcalcification, architectural distortion, suspicious mass or suspicious asymmetry. Impression: No evidence of malignancy. BIRADS Category 2, benign findings, 3342F [id number], [id number] Note: Patient information entered into a reminder system with a target duedate for the next mammogram: CPT II 7025F Dictating Physician: MIKE BYNUM MD Electronically Signed by: MIKE BYNUM MD Dic Date/Time: 11/09/21 1505 Sign date/Time: 11/09/21 1508 Cindy White SENIOR QUANTITY SURVEYOR IMG BI PROCEDURES Final Re sult from Last 3 Months or Most Recently Relevant to Health Maintenance Insurance [facility] [employer] Care Teams Leisure Studies Professor Relationship Specialty Start Date End Date Sree Espinal MD [address] [place] [id number] PCP - General 01/16/24
== END 2025-02-13 10:58 | disposition home or self-care (01) ==
LOC: HO.MRI 10:57
PROVIDERS: Visit Provider Student in an Organized Health Care Education/Training Program
DX: Z13.89 Encounter for screening for other disorder (principal)

== ENCOUNTER 2025-02-17 14:59 | Outpatient (REF) | payer OTHER, SELFPAY ==
--- NOTE | 2025-02-17 15:02 | EMG_ITS ---
Chief complaint: Right hand numbness and pain, history of OA Reason for referral: Evaluate for Carpal Tunnel Syndrome Referred by: Dr. Claire Procedure done: Right upper extremity NCS/EMG Precautions and/or limitations: None The limb temperature was monitored continuously and remained between 32-36 degrees C during the performance of the NCS. Nerve Conduction Studies Anti Sensory Summary Table ?Stim Site NR Onset (ms) Norm Onset (ms) Peak (ms) Norm Peak (ms) O-P Amp (?V) Norm O-P Amp Site1 Site2 Delta-0 (ms) Dist (cm) Azam (m/s) Norm Azam (m/s) Right Median Anti Sensory (2nd Digit) Wrist ? 2.5 3.2 <3.6 27.9 >10 Wrist 2nd Digit 2.5 14.0 56 Right Radial Anti Sensory (Thumb) Forearm ? 1.6 2.1 <3.1 14.5 Forearm Thumb 1.6 0.0 Right Ulnar Anti Sensory (5th Digit) Wrist ? 2.2 3.1 <3.7 15.2 >15.0 Wrist 5th Digit 2.2 14.0 64 Motor Summary Table ?Stim Site NR Onset (ms) Norm Onset (ms) O-P Amp (mV) Norm O-P Amp iAmp (mV) Amp (1st) (%) Site1 Site2 Delta-0 (ms) Dist (cm) Azam (m/s) Norm Azam (m/s) Right Median Motor (Abd Poll Brev) Wrist ? 3.4 <3.9 11.6 >4.5 15.5 100.0 Elbow Wrist 3.4 19.0 56 >45 Elbow ? 6.8 10.7 13.9 92.2 Right Ulnar Motor (Abd Dig Minimi) Wrist ? 2.7 <3.0 10.2 >5 11.8 100.0 B Elbow Wrist 2.9 17.0 59 >45 B Elbow ? 5.6 9.7 11.3 95.1 A Elbow B Elbow 1.3 10.0 77 >45 A Elbow ? 6.9 9.7 11.5 95.1 EMG ?Side Muscle Nerve Root Ins Act Fibs Psw Amp Dur Poly Recrt Int Pat Comment Right 1stDorInt Ulnar C8-T1 Nml Nml Nml Nml Nml 0 Nml Complete Right FlexCarRad Median C6-7 Nml Nml Nml Nml Nml 0 Nml Complete Right FlexCarpiUln Ulnar C8,T1 Nml Nml Nml Nml Nml 0 Nml Complete Right Biceps Musculocut C5-6 Nml Nml Nml Nml Nml 0 Nml Complete Right Triceps Radial C6-7-8 Nml Nml Nml Nml Nml 0 Nml Complete Right Deltoid Axillary C5-6 Nml Nml Nml Nml Nml 0 Nml Complete FINDINGS: All motor and sensory nerves tested showed normal latencies, amplitudes and conduction velocities. Concentric needle EMG was performed in selected muscles of the right upper extremity. Study did not reveal signs of electric abnormalities as shown in the table above. IMPRESSION: 1. This is a normal study. 2. There is no electrodiagnostic evidence for median neuropathy, ulnar neuropathy, brachial plexopathy, or cervical radiculopathy. Thank you for your kind referral. Aidee Blankenship MD, VENKAT Board Certified, [place] Board of Physical Medicine and Rehabilitation (ABPMR) Board Certified, [place] Board of Electrodiagnostic Medicine (ABEM) CODIN [id number] [facility]
--- OUTSIDE RECORDS SUMMARY | 2025-02-17 18:31 | XMS_ITS | Clinical Summary ---
Author Organization [facility] [address] [place] [address] [place] [phone] Phone Care Team Providers Care Contract Manager Name Role Phone Sree Espinal MD Primary Care Provider [phone] Allergies Active Allergy Reactions Criticality Noted Date [...] Type 2 diabetes mellitus wit hout complication ([facility] V24, [facility] V28) 06/20/2022 Atherosclerotic heart diseas e of [place] coronary artery without angina pectoris 02/13/2016 Fibromyalgia [...] 11:00 AM EDT Office Visit Internal Medicine [address] [phone] Sree Espinal MD Type 2 diabetes mellitus without complication, without long-term current use of insulin ([facility] V24, [facility] V28) (Primary Dx); Essential hypertension; Hypercholesterolemia; Overweight 01/26/2025 Telephone Internal Medicine [address] [phone] Sree Espinal MD from Last [...] AM EDT Office Visit Bariatric Surgery - [address] [place] [address] Marlon Ayala MD [address] [place] [phone] Health Maintenance Due Date Last Done Comments [...] complication, without long-term current use of insulin ([facility] V24, [facility] V28) LIPID PANEL WITH REFLEX TO DIRECT LDL Routine 10/01/2024 10:41 AM EDT Type 2 diabetes mellitus without complication, without long-term current use of insulin ([facility] V24, [facility] V28) Hyperlipidemia, unspecified hyperlipidemia type URINE ALBUMIN CREATININE RATIO Routine 02/26/2024 COLONOSCOPY Routine 07/30/2022 [facility] SCREENING DIGITAL Routine 11/09/2021 3:08 PM EDT Encounter for screening mammogram for malignant neoplasm of breast from Last 3 Months or Most Recently Relevant to Health Maintenance Results * (ABNORMAL) Lipid panel with reflex to direct LDL (10/01/2024 10:41 AM EDT) Cholesterol 258(H) 0 - 200 mg/dL LAB CHE[facility]STR[facility] Triglycerides 118 0 - 150 mg/dL LAB CHEMISTRY METHOD 10/01/2024 12:05 PM [facility] HDL 61 >=40 mg/dL LAB CHEMISTRY METHOD 10/01/2024 12:05 PM [facility] LDL Calculated 173(H) 0 - 100 mg/dL LAB CHEMISTRY METHOD 10/01/2024 12:05 PM [facility] VLDL Cholesterol Guille 23.6 mg/dL LAB CHEMISTRY METHOD 10/01/2024 12:05 PM [facility] Non HDL Chol. (LDL+VLDL) 197(H) <145 mg/dL LAB CHEMISTRY METHOD 10/01/2024 12:05 PM [facility] Chol/HDL Ratio 4.2 0.0 - 4.4 LAB CHEMISTRY METHOD 10/01/2024 12:05 PM [facility] Blood Venous blood specimen / Unknown Venipuncture / Unknown 10/01/2024 10:41 AM EDT 10/01/2024 10:57 AM EDT Jerri ANDREWS LAB BLOOD ORDERABLES Final Resul t [facility] [address] [place] [address], [place] [phone] * Hemoglobin A1c (10/01/2024 10:41 AM EDT) Pathologist [facility] Hemoglobin A1C 6.2 <6.5 % LAB CHEMISTRY METHOD 10/01/2024 1:51 PM EDT [facility] Mean Bld Glu Estim. 131 mg/dL LAB CHEMISTRY METHOD 10/01/2024 1:51 PM EDT [facility] Blood Venous blood specimen / Unknown Venipuncture / Unknown 10/01/2024 10:41 AM EDT 10/01/2024 10:54 AM EDT Jerri ANDREWS LAB BLOOD ORDERABLES Final Resul t Performing Organization Address [facility]/ZIP Co de Phone Number [facility] [address] [place] [address], [place] [phone] * (ABNORMAL) Comprehensive metabolic panel (10/01/2024 10:41 AM EDT) [facility] Sodium 139 133 - 145 mmol/L LAB CHEMISTRY METHOD 10/01/2024 12:05 PM [facility] Potassium 4.1 3.5 - 5.5 mmol/L LAB CHEMISTRY METHOD 10/01/2024 12:05 PM [facility] Chloride 106 96 - 110 mmol/L LAB CHEMISTRY METHOD 10/01/2024 12:05 PM [facility] CO2 26 21 - 32 mmol/L LAB CHEMISTRY METHOD 10/01/2024 12:05 PM [facility] Anion Gap 7 3 - 11 LAB CHEMISTRY METHOD 10/01/2024 12:05 PM [facility] Glucose 109(H) 70 - 100 mg/dL LAB CHEMISTRY METHOD 10/01/2024 12:05 PM [facility] BUN 13 5 - 25 mg/dL LAB CHEMISTRY METHOD 10/01/2024 12:05 PM [facility] Creatinine 0.73 0.50 - 1.10 mg/dL LAB CHEMISTRY METHOD 10/01/2024 12:05 PM [facility] eGFR 93 >=60 mL/min/1. 73m2 LAB CHEMISTRY METHOD 10/01/2024 12:05 PM [facility] Comment:Calculation based on the Chronic Kidney Disease Epidemiology Collaboration (CKD-EPI) equation refit without adjustment for race. BUN/Creatinine Ratio 17.8 LAB CHEMISTRY METHOD 10/01/2024 12:05 PM [facility] Calcium 9.9 8.5 - 10.5 mg/dL LAB CHEMISTRY METHOD 10/01/2024 12:05 PM [facility] AST (SGOT) 13 10 - 42 unit/L LAB CHEMISTRY METHOD 10/01/2024 12:05 PM [facility] ALT (SGPT) 17 10 - 60 unit/L LAB CHEMISTRY METHOD 10/01/2024 12:05 PM [facility] Alkaline Phosphatase 84 42 - 121 unit/L LAB CHEMISTRY METHOD 10/01/2024 12:05 PM [facility] Total Protein 7.7 6.0 - 8.0 g/dL LAB CHEMISTRY METHOD 10/01/2024 12:05 PM [facility] Albumin 3.7 3.2 - 5.0 g/dL LAB CHEMISTRY METHOD 10/01/2024 12:05 PM [facility] Total Bilirubin 0.3 0.0 - 1.4 mg/dL LAB CHEMISTRY METHOD 10/01/2024 12:05 PM [facility] Blood Venous blood specimen / Unknown Venipuncture / Unknown 10/01/2024 10:41 AM EDT 10/01/2024 10:57 AM EDT us Andrea Garner Pierson MD LAB BLOOD ORDERABLES Josseline l Result [facility] [address] [place] [address], [place] [phone] * Urine Albumin Creatinine Ratio (02/26/2024) Urine Albumin Creatinine Ratio Abstracted Historical Provider HEALTH MAINTENANCE Final Result * Colonoscopy (07/30/2022) Colonoscopy Abstracted, Positive Anatomical Region Laterality Modality Other Historical Provider HEALTH MAINTENANCE Final Result * [facility] SCREENING DIGITAL (11/09/2021 3:08 PM EDT) Anatomical Region Laterality Modality Mammography 11/09/2021 11:1 2 AM EDT Narrative 11/09/2021 3:08 PM EDT [facility] Diagnostic Imaging Department [address] [place] [address] Patient: ARIANA BROWNE /Age/Sex: 1960 - 61 - F Unit#: [id number] Location/Status: [facility] CLI Mnemonic/Ordering Site: DIGSC/SPMAM Ordering Physician: CINDY WHITE DECKHAND MAINTENANCE Anand Screening Digital - 11/09/219 History: Bilateral breast cancer screening. Technique: Digital mammography. Conventional CC and MLO projections with tomosynthesis MLO views and computer aided detection. Comparison: [facility] 06/15/2020, dating back to 08/26/2003. Findings: Breast tissue consists of a combination of fatty and fibroglandular elements (category b density) (as calculated by [employer] software). There are benign calcifications bilaterally. No suspicious group of calcification, architectural distortion, suspicious mass or suspicious asymmetry. Impression: No evidence of malignancy. BIRADS Category 2, benign findings, 3342F [address]3314, [id number] Note: Patient information entered into a reminder system with a target due date for the next mammogram: CPT II 7025F Dictating Physician: MIKE BYNUM MD Electronically Signed by: MIKE BYNUM MD Dic Date/Time: 11/09/21 1505 Sign date/Time: 11/09/21 1508 Procedure Note Mike Bynum MD - 05/23/2022 [facility] Diagnostic Imaging Department [address] [place] [address] Patient: ARIANA BROWNE /Age/Sex: 1960 - 61 - F Unit#: [id number] Location/Status: [facility] Mnemonic/Ordering Site: [facility] Ordering Physician: CINDY WHITE DECKHAND MAINTENANCE Anand Screening Digital - 11/09/217 History: Bilateral breast cancer screening. Technique: Digital mammography. Conventional CC and MLO projections with tomosynthesis MLO views and computer aided detection. Comparison: [facility] 06/15/2020, dating back to 08/26/2003. Findings: Breast tissue consists of a combination of fatty andfibroglandular elements (category b density) (as calculated by [employer] software).There are benign calcifications bilaterally. No suspicious group ofcalcification, architectural distortion, suspicious mass or suspicious asymmetry. Impression: No evidence of malignancy. BIRADS Category 2, benign findings, 3342F [address]6092, [id number] Note: Patient information entered into a reminder system with a target duedate for the next mammogram: CPT II 7025F Dictating Physician: MIKE BYNUM MD Electronically Signed by: MIKE BYNUM MD Dic Date/Time: 11/09/21 1505 Sign date/Time: 11/09/21 1508 Cindy Wihte DECKHAND MAINTENANCE IMG BI PROCEDURES Final Re sult from Last 3 Months or Most Recently Relevant to Health Maintenance Insurance [facility] [employer] Care Teams Contract Manager Relationship Specialty Start Date End Date Sree Espinal MD [address] [place] [id number] PCP - General 01/16/24
== END 2025-02-17 15:00 | disposition home or self-care (01) ==
LOC: HO.NEURO 14:59
PROVIDERS: Visit Provider Student in an Organized Health Care Education/Training Program
DX: G56.21 Lesion of ulnar nerve, right upper limb (principal)
CPT/HCPCS: 95886; 95909

== ENCOUNTER → 2025-02-17 15:02 | Outpatient (BNV) | payer OTHER, SELFPAY | PROVIDERS: Visit Provider Physical Medicine & Rehabilitation | DX: G56.20 Lesion of ulnar nerve, unspecified upper limb (principal); M79.641 Pain in right hand; R20.2 Paresthesia of skin | CPT/HCPCS: 95886; 95909 ==